=== PATIENT | female | born 1945 | race Caucasian/White ===

== ENCOUNTER 2018-06-01 04:14 | Inpatient (IN) | payer MEDICARE ==
[2018-06-01 04:14] VITALS: BMI 21.7
--- NOTE | 2018-06-01 04:46 | C.PDOC ---
History Of Present Illness 73-year-old female with a past medical history of diabetes and hypertension presents with complaints of left foot pain and swelling that began yesterday and worsened tonight. states she did not want to walk and spent more time in bed. Patient denies any fall or injury. On arrival, temp is 100.5F, but patient did not know of fever. Otherwise she denies any changes in sensation, weakness, cough, or URI symptoms. Pain worsens with weight bearing and movement. She did not take anything for pain. Time Seen by Provider: 06/01/18 04:36 Chief Complaint (Nursing): Lower Extremity Problem/Injury History Per: Patient History/Exam Limitations: no limitations Onset/Duration Of Symptoms: Days Current Symptoms Are (Timing): Still Present Additional History Per: Family Past Medical History Reviewed: Historical Data, Nursing Documentation, Vital Signs Vital Signs: Last Vital Signs Temp 100.5 F H 06/01/18 04:27 Pulse 96 H 06/01/18 04:27 Resp 18 06/01/18 04:27 BP 175/96 H 06/01/18 04:27 Pulse Ox 97 06/01/18 06:19 - Medical History PMH: Diabetes (type 2), HTN Family History: States: Unknown Family Hx - Social History Hx Tobacco Use: No Hx Alcohol Use: No Hx Substance Use: No - Immunization History Hx Tetanus Toxoid Vaccination: No Hx Influenza Vaccination: No Hx Pneumococcal Vaccination: Yes Review Of Systems ENT: Negative for: Nose Congestion Respiratory: Negative for: Cough, Shortness of Breath Gastrointestinal: Negative for: Nausea, Vomiting Musculoskeletal: Positive for: Foot Pain Neurological: Negative for: Weakness, Numbness Physical Exam - Physical Exam Appears: Non-toxic, No Acute Distress Skin: Warm, Dry, No Rash, No Mottled, No Ecchymosis Head: Atraumatic, Normacephalic Eye(s): bilateral: Normal Inspection Oral Mucosa: Moist Neck: Normal ROM Chest: Symmetrical Cardiovascular: Rhythm Regular, No Murmur Respiratory: Normal Breath Sounds, No Rales, No Rhonchi, No Wheezing Gastrointestinal/Abdominal: Soft, No Tenderness, No Distention Extremity: No Normal ROM (LLE: limited ROM secondary to pain), No Calf Tenderness, Capillary Refill (< 2 sec), No Deformity, Other (Left medial ankle and foot with swelling just below ankle; tactile warmth, erythema, no ulcers; psoriatic patches to leg) Pulses: Left Dorsalis Pedis: Normal, Right Dorsalis Pedis: Normal Neurological/Psych: Oriented x3, Normal Speech ED Course And Treatment - Laboratory Results Result Diagrams: 06/01/18 04:47 06/01/18 04:47 O2 Sat by Pulse Oximetry: 97 (RA) Pulse Ox Interpretation: Normal Medical Decision Making Medical Decision Making: Impression: 73-year-old with left foot pain Plan: --Urinalysis --CMP --CBC --Uric acid --Toradol 30 mg IVP --X-Ray Left Ankle --X-Ray Left Foot Progress: Labs reviewed shows elevated uric acid; abnormal CBC but not acute; Potassium slightly hemolyzed. Xrays show no fracture or dislocation, soft tissue swelling. Patient continued to complain of pain. 0523 Dr Wallace examined patient at bedside and recommend CT of lower extremity and to start IV Ancef. [address], pending report. Case signed out to RACHELLE Henriquez, pending CT report and will need podiatry consult. Disposition - Disposition Referrals: eKn Rodgers MD [Primary Care Provider] - Disposition Time: 06:43 Condition: STABLE - POA Present On Arrival: None - Clinical Impression Clinical Impression: Cellulitis, Foot pain - PA / [employer] / Resident Statement MD/DO has reviewed & agrees with the documentation as recorded. - Scribe Statement The provider has reviewed the documentation as recorded by the Scribe (Carlyn Sethi) All medical record entries made by the Scribe were at my direction and personally dictated by me. I have reviewed the chart and agree that the record accurately reflects my personal performance of the history, physical exam, medical decision making, and the department course for this patient. I have also personally directed, reviewed, and agree with the discharge instructions and disposition.
[2018-06-01 04:50] LABS: BASO # 0.1 K/uL (0.0-0.2); BASO % 0.5 % (0.0-2.0); HEMOGLOBIN 11.9 g/dL (11.0-16.0); LYMPH # 0.9 K/uL (1.0-4.3); LYMPH % 7.1 % (20.0-40.0); MEAN CELL VOLUME 94.5 fL (81.0-99.0); MEAN CORPUSCULAR HEMOGLOBIN 31.5 pg (27.0-31.0); MEAN CORPUSCULAR HGB CONC 33.3 g/dL (33.0-37.0); MEAN PLATELET VOLUME 7.5 fL (7.2-11.7); MONO # 1.5 K/uL (0.0-0.8); MONO % 12.1 % (0.0-10.0); NEUT # 10.1 K/uL (1.8-7.0); NEUT % 80.3 % (50.0-75.0); NRBC % 0.1 % (0.0-2.0); PLATELET COUNT 350 K/uL (130-400); RBC 3.77 Mil/uL (3.80-5.20); RED CELL DISTRIBUTION WIDTH 14.2 % (11.5-14.5); WHITE BLOOD COUNT 12.6 K/uL (4.8-10.8)
[2018-06-01 05:15] LABS: CALCIUM 9.3 mg/dl (8.6-10.4)
[2018-06-01 05:18] LABS: ALB/GLOB RATIO 0.9 (1.0-2.1); ALBUMIN 4.7 g/dL (3.5-5.0); URIC ACID 10.7 mg/dL (2.2-7.5)
[2018-06-01] MEDS ORDERED: ceFAZolin IV 1 gm in Dextrose 1 GM/50 ML BAG IVPB ONE (05:29)
[2018-06-01] MEDS ORDERED: ceFAZolin 1 gm in NS 1 GM/100 ML BAG IVPB ONE (05:36)
[2018-06-01 06:29] LABS: ANISOCYTOSIS SLIGHT; BANDS 2 % (0-2); LYMPHOCYTE 8 % (20-40); MONOCYTE 11 % (0-10); NEUTROPHIL 79 % (50-75); PLATELET ESTIMATE NORMAL (NORMAL); TOTAL CELLS COUNTED 100
--- NOTE | 2018-06-01 07:37 | CT ---
Date of service: 06/01/2018 PROCEDURE: CT of the left ankle without contrast HISTORY: pain, swelling, redness left ankle/foot; no injury COMPARISON: No prior similar study available for comparison TECHNIQUE: Axial and reformatted coronal and sagittal CT images of the left ankle were obtained without contrast administration. 3D reformatted images of the left ankle were also obtained. Total exam DLP: 437.55 FINDINGS: The assessment is suboptimal without IV contrast administration. No evidence of acute fracture or dislocation at the left ankle. There is a skin and subcutaneous edema and soft tissue swelling noted at the lateral aspect of the left ankle extending to the lateral and dorsal aspect of the left foot may represent cellulitis and subcutaneous inflammatory changes. There is no evidence of discrete drainable fluid collection in this non contrast enhancing study. IMPRESSION: No evidence of acute fracture or dislocation. Suboptimal assessment for possible infectious process or abscess without IV contrast administration. Skin and subcutaneous swelling at the lateral aspect of the left ankle extending to the dorsal aspect of the left foot may represent cellulitis. No discrete abscess formation or drainable fluid collection noted this study. Preliminary report was submitted by [facility].
[2018-06-01 08:34] LABS: CALCIUM 9.5 mg/dl (8.6-10.4)
--- NOTE | 2018-06-01 08:51 | RAD ---
Date of service: 06/01/2018 PROCEDURE: Left Ankle Radiographs. HISTORY: pain to ankle no injury COMPARISON: None FINDINGS: BONES: No fracture. Plantar calcaneal spur. JOINTS: Normal. No osteoarthritis. Ankle mortise maintained. Talar dome intact SOFT TISSUES: Normal. OTHER FINDINGS: None. IMPRESSION: No acute fracture.
--- NOTE | 2018-06-01 08:52 | RAD ---
Date of service: 06/01/2018 PROCEDURE: Left Foot Radiographs. HISTORY: pain to foot COMPARISON: None. FINDINGS: BONES: No fracture. Plantar calcaneal spur. JOINTS: Mild hallux valgus deformity. Remaining joint spaces and articular surfaces are intact. SOFT TISSUES: Normal. OTHER FINDINGS: None. IMPRESSION: No acute fracture.
--- NOTE | 2018-06-01 08:58 | CP.PCM.CON ---
History of Present Illness - History of Present Illness History of Present Illness: Podiatry Consult Note - Dr. Salamanca 73 year old female PMHx DM, HTN seen and examined in ED concerning left foot pain and swelling that started yesterday; patient states swelling worsened overnight preventing her from walking properly so presented to ED for further evaluation. Patient denies any prior trauma, change in shoe gear, or change in activity. Patient denies any f/c, however temperature 100.5F on arrival. Patient denies prior treatment. Patient denies N/V/D/SOB/PARKS/CP. Offers no other complaints at this time. PMHx: DM, HTN PSH: none FH: unknown SH: denies ETOH/tobacco/illicit drug use All: NKDA Review of Systems - Review of Systems All systems: reviewed and no additional remarkable complaints except (as per HPI ) Past Patient History - Infectious Disease Hx of Infectious Diseases: None - Past Medical History & Family History Past Medical History?: Yes - Past Social History Smoking Status: Never Smoked - CARDIAC Hx Hypertension: Yes - PULMONARY Hx Respiratory Disorders: No - NEUROLOGICAL Hx Neurological Disorder: No - HEENT Hx HEENT Problems: No - RENAL Hx Chronic Kidney Disease: No Hx Kidney Stones: No - ENDOCRINE/METABOLIC Hx Endocrine Disorders: Yes Hx Diabetes Mellitus Type 2: Yes - HEMATOLOGICAL/ONCOLOGICAL Hx Blood Disorders: No - INTEGUMENTARY Hx Dermatological Problems: No - MUSCULOSKELETAL/RHEUMATOLOGICAL Hx Musculoskeletal Disorders: No Hx Falls: No - GASTROINTESTINAL Hx Gastrointestinal Disorders: No - GENITOURINARY/GYNECOLOGICAL Hx Genitourinary Disorders: No - PSYCHIATRIC Hx Substance Use: No - SURGICAL HISTORY Hx Surgeries: Yes Hx Hysterectomy: Yes (70's) - ANESTHESIA Hx Anesthesia: Yes Hx Anesthesia Reactions: No Hx Malignant Hyperthermia: No Meds Allergies/Adverse Reactions: Allergies Allergy/AdvReac Type Severity Reaction Status Date / Time No Known Allergies Allergy Verified 06/01/18 04:22 - Medications Medications: Current Medications Sodium Chloride (Sodium Chloride 0.9%) 1,000 mls @ 100 mls/hr IV .Q10H KRISTA Physical Exam - Constitutional Appears: Well, Non-toxic, No Acute Distress - Extremities Exam Additional comments: LLE focused physical exam: VASC: DP and PT pulses nonpalpable 2/2 edema. Temperature gradient warm to warm , no significant increase in warmth noted to areas of erythema. Non-pitting edema extending from digits to ankle joint. NEURO: Gross sensation diminished. DERM: Erythema extending from digits to ankle joint. No open lesions noted. Webspaces 1-4 clean/dry/intact, no maceration noted. Raised, purple plaques measuring approximately 0.4 x 0.4 cm with overlying silver scales noted to anterior and lateral aspects of leg. ORTHO: Mild tenderness to palpation noted to areas of erythema. Muscle strength 5/5 for all dorsiflexors, plantarflexors, inverters, and everters. - Neurological Exam Neurological exam: Alert, Oriented x3 - Psychiatric Exam Psychiatric exam: Normal Affect, Normal Mood Results - Vital Signs Recent Vital Signs: Last Vital Signs Temp 98.0 F 06/01/18 07:58 Pulse 79 06/01/18 07:58 Resp 16 06/01/18 07:58 BP 168/94 H 06/01/18 07:58 Pulse Ox 97 06/01/18 07:58 - Labs Result Diagrams: 06/01/18 04:47 06/01/18 07:57 Labs: Laboratory Results - last 24 hr 06/01/18 06/01/18 06/01/18 04:47 04:47 07:57 WBC 12.6 H RBC 3.77 L Hgb 11.9 Hct 35.7 MCV 94.5 MCH 31.5 H MCHC 33.3 RDW 14.2 Plt Count 350 MPV 7.5 Neut % (Auto) 80.3 H Lymph % (Auto) 7.1 L [place] % (Auto) 12.1 H Eos % (Auto) 0.0 Baso % (Auto) 0.5 Neut # (Auto) 10.1 H Lymph # (Auto) 0.9 L [place] # (Auto) 1.5 H Eos # (Auto) 0.0 Baso # (Auto) 0.1 Neutrophils % (Manual) 79 H Band Neutrophils % 2 Lymphocytes % (Manual) 8 L Monocytes % (Manual) 11 H Platelet Estimate Normal Anisocytosis (manual) Slight Sodium 144 144 Potassium 6.0 H 3.5 L Chloride 101 100 Carbon Dioxide 25 26 Anion Gap 24 H 22 H BUN 33 H 35 H Creatinine 1.6 H 1.7 H Est GFR ( Amer) 38 36 Est GFR (Non-Af Amer) 32 30 Random Glucose 234 H 186 H Uric Acid 10.7 H Calcium 9.3 9.5 Total Bilirubin 2.2 H AST 68 H ALT 25 Alkaline Phosphatase 101 Total Protein 9.7 H Albumin 4.7 Globulin 5.0 H Albumin/Globulin Ratio 0.9 L Assessment & Plan - Assessment and Plan (Free Text) Assessment: 73F with left foot cellulitis Plan: Patient seen and evaluated Discussed with attending, Dr. Salamanca Tmax 100.5, WBC 12.6, ESR 120 Ancef 1g IV given in ED Patient to be admitted for IV abx ID consulted - Dr. Fine Pain control per primary team Podiatry will continue to follow
[2018-06-01] MEDS ORDERED: Sodium Chloride 0.9% 500 ML IV ONE (09:30)
[2018-06-01] MEDS: Sodium Chloride 0.9% 1,000 ML IV SCH (09:38)
[2018-06-01 10:50] LABS: URINE BILIRUBIN NEGATIVE (NEGATIVE); URINE BLOOD 2+ (NEGATIVE); URINE CLARITY Hazy (Clear); URINE COLOR Amber (YELLOW); URINE GLUCOSE (UA) 1+ mg/dL (Normal); URINE LEUKOCYTE ESTERASE NEG Leu/uL (Negative); URINE PROTEIN 2+ mg/dL (NEGATIVE); URINE UROBILINOGEN NORMAL mg/dL (0.2-1.0)
[2018-06-01 11:04] LABS: SQUAMOUS EPITHIAL 2 /hpf (0-5)
[2018-06-01 11:05] LABS: GRANULAR CAST 2 /lpf (0-1); URINE AMORPHOUS SEDIMENT MODERATE /ul (<OCC); URINE BACTERIA RARE (<OCC)
[2018-06-01] MEDS ORDERED: Glucagon Recombinant 1 mg Inj IM PRN (12:01)
[2018-06-01] MEDS ORDERED: Dextrose 50% SYRINGE Inj (50 ml) IV PRN (12:01)
--- NOTE | 2018-06-01 12:32 | CP.PCM.CON ---
Past Patient History - Infectious Disease Hx of Infectious Diseases: None - Past Medical History & Family History Past Medical History?: Yes - Past Social History Smoking Status: Never Smoked - CARDIAC Hx Hypertension: Yes - PULMONARY Hx Respiratory Disorders: No - NEUROLOGICAL Hx Neurological Disorder: No - HEENT Hx HEENT Problems: No - RENAL Hx Chronic Kidney Disease: No Hx Kidney Stones: No - ENDOCRINE/METABOLIC Hx Endocrine Disorders: Yes Hx Diabetes Mellitus Type 2: Yes - HEMATOLOGICAL/ONCOLOGICAL Hx Blood Disorders: No - INTEGUMENTARY Hx Dermatological Problems: No - MUSCULOSKELETAL/RHEUMATOLOGICAL Hx Musculoskeletal Disorders: No Hx Falls: No - GASTROINTESTINAL Hx Gastrointestinal Disorders: No - GENITOURINARY/GYNECOLOGICAL Hx Genitourinary Disorders: No - PSYCHIATRIC Hx Substance Use: No - SURGICAL HISTORY Hx Surgeries: Yes Hx Hysterectomy: Yes ('s) - ANESTHESIA Hx Anesthesia: Yes Hx Anesthesia Reactions: No Hx Malignant Hyperthermia: No Meds Allergies/Adverse Reactions: Allergies Allergy/AdvReac Type Severity Reaction Status Date / Time No Known Allergies Allergy Verified 06/01/18 04:22 - Medications Medications: Current Medications Dextrose (Dextrose 50% Inj) 0 ml IV STAT PRN; Protocol PRN Reason: Hypoglycemia Protocol Dextrose (Glutose 15) 0 gm PO ONCE PRN; Protocol PRN Reason: Hypoglycemia Protocol Glucagon (Glucagen Diagnostic Kit) 0 mg IM STAT PRN; Protocol PRN Reason: Hypoglycemia Protocol Heparin Sodium (Porcine) (Heparin) 5,000 units SC Q8 KRISTA Sodium Chloride (Sodium Chloride 0.9%) 1,000 mls @ 100 mls/hr IV .Q10H [facility] Last Admin: 06/01/18 09:38 Dose: 100 mls/hr Dextrose (Dextrose 5% In Water 1000 Ml) 1,000 mls @ 0 mls/hr IV .Q0M PRN; Protocol; Per Protocol PRN Reason: Hypoglycemia Protocol Insulin Detemir (Levemir) 8 unit SC DAILY [facility] Lisinopril (Zestril) 20 mg PO DAILY [facility] Results - Vital Signs Recent Vital Signs: Last Vital Signs Temp 98.0 F 06/01/18 07:58 Pulse 75 06/01/18 10:20 Resp 20 06/01/18 10:20 BP 152/85 H 06/01/18 10:20 Pulse Ox 97 06/01/18 10:20 - Labs Result Diagrams: 06/01/18 04:47 06/01/18 07:57 Labs: Laboratory Results - last 24 hr 06/01/18 06/01/18 06/01/18 04:31 04:47 04:47 WBC 12.6 H RBC 3.77 L Hgb 11.9 Hct 35.7 MCV 94.5 MCH 31.5 H MCHC 33.3 RDW 14.2 Plt Count 350 MPV 7.5 Neut % (Auto) 80.3 H Lymph % (Auto) 7.1 L [place] % (Auto) 12.1 H Eos % (Auto) 0.0 Baso % (Auto) 0.5 Neut # (Auto) 10.1 H Lymph # (Auto) 0.9 L [place] # (Auto) 1.5 H Eos # (Auto) 0.0 Baso # (Auto) 0.1 Neutrophils % (Manual) 79 H Band Neutrophils % 2 Lymphocytes % (Manual) 8 L Monocytes % (Manual) 11 H Platelet Estimate Normal Anisocytosis (manual) Slight ESR Sodium 144 Potassium 6.0 H Chloride 101 Carbon Dioxide 25 Anion Gap 24 H BUN 33 H Creatinine 1.6 H Est GFR ( Amer) 38 Est GFR (Non-Af Amer) 32 POC Glucose (mg/dL) 241 H Random Glucose 234 H Uric Acid 10.7 H Calcium 9.3 Total Bilirubin 2.2 H AST 68 H ALT 25 Alkaline Phosphatase 101 Total Protein 9.7 H Albumin 4.7 Globulin 5.0 H Albumin/Globulin Ratio 0.9 L Urine Color Urine Clarity Urine pH Ur Specific [place] Urine Protein Urine Glucose (UA) Urine Ketones Urine Blood Urine Nitrate Urine Bilirubin Urine Urobilinogen Ur Leukocyte Esterase Urine WBC (Auto) Urine RBC (Auto) Ur Squamous Epith Cells Amorphous Sediment Urine Bacteria Hyaline Casts Granular Casts (Auto) 06/01/18 06/01/18 06/01/18 07:57 07:57 10:16 WBC RBC Hgb Hct MCV MCH MCHC RDW Plt Count MPV Neut % (Auto) Lymph % (Auto) [place] % (Auto) Eos % (Auto) Baso % (Auto) Neut # (Auto) Lymph # (Auto) [place] # (Auto) Eos # (Auto) Baso # (Auto) Neutrophils % (Manual) Band Neutrophils % Lymphocytes % (Manual) Monocytes % (Manual) Platelet Estimate Anisocytosis (manual) ESR 120 H Sodium 144 Potassium 3.5 L Chloride 100 Carbon Dioxide 26 Anion Gap 22 H BUN 35 H Creatinine 1.7 H Est GFR ( Amer) 36 Est GFR (Non-Af Amer) 30 POC Glucose (mg/dL) Random Glucose 186 H Uric Acid Calcium 9.5 Total Bilirubin AST ALT Alkaline Phosphatase Total Protein Albumin Globulin Albumin/Globulin Ratio Urine Color [place] Urine Clarity Hazy Urine pH 5.0 Ur Specific [place] 1.021 Urine Protein 2+ H Urine Glucose (UA) 1+ Urine Ketones Negative Urine Blood 2+ H Urine Nitrate Negative Urine Bilirubin Negative Urine Urobilinogen Normal Ur Leukocyte Esterase Neg Urine WBC (Auto) 2 Urine RBC (Auto) 10 H Ur Squamous Epith Cells 2 Amorphous Sediment Moderate H Urine Bacteria Rare Hyaline Casts 3-5 H Granular Casts (Auto) 2
[2018-06-01] MEDS: ceFAZolin IV 1 gm in Dextrose 1 GM/50 ML BAG IVPB SCH ×2 (14:22→20:50)
[2018-06-02] MEDS: ceFAZolin IV 1 gm in Dextrose 1 GM/50 ML BAG IVPB SCH ×3 (03:58→21:10)
[2018-06-02] MEDS: Sodium Chloride 0.9% 1,000 ML IV SCH ×3 (03:58→13:48)
[2018-06-02 08:01] LABS: BASO % 0.3 % (0.0-2.0); EOS # 0.1 K/uL (0.0-0.7); EOS % 1.6 % (0.0-4.0); HEMOGLOBIN 10.4 g/dL (11.0-16.0); LYMPH # 1.1 K/uL (1.0-4.3); LYMPH % 15.6 % (20.0-40.0); MEAN CELL VOLUME 95.2 fL (81.0-99.0); MEAN CORPUSCULAR HEMOGLOBIN 32.7 pg (27.0-31.0); MEAN CORPUSCULAR HGB CONC 34.3 g/dL (33.0-37.0); MEAN PLATELET VOLUME 8.1 fL (7.2-11.7); MONO # 0.5 K/uL (0.0-0.8); MONO % 7.6 % (0.0-10.0); NEUT # 5.1 K/uL (1.8-7.0); NEUT % 74.9 % (50.0-75.0); RBC 3.18 Mil/uL (3.80-5.20); RED CELL DISTRIBUTION WIDTH 14.2 % (11.5-14.5); WHITE BLOOD COUNT 6.8 K/uL (4.8-10.8)
[2018-06-02 08:26] LABS: ALB/GLOB RATIO 1.1 (1.0-2.1); ALBUMIN 3.5 g/dL (3.5-5.0); CALCIUM 8.4 mg/dl (8.6-10.4)
--- NOTE | 2018-06-02 08:42 | CP.PCM.HP ---
History of Present Illness - History of Present Illness History of Present Illness: CC: Foot pain 73 y/o female with brain cyst, HTN, NIDDM. Patient has left foot pain x 3 days. Cay[place] increase in pain and redness yesterday. She was seen in ER and advise admission, Present on Admission - Present on Admission Any Indicators Present on Admission: Yes History of DVT/PE: No History of Uncontrolled Diabetes: Yes Urinary Catheter: No Decubitus Ulcer Present: No Review of Systems - Review of Systems Systems not reviewed;Unavailable: Acuity of Condition - Constitutional Constitutional: Fatigue. absent: Fever, Headache, Increased Appetite, Night Sweats - EENT Eyes: absent: Change in Vision, Diplopia, Loss of Peripheral Vision, Sees Flashes Nose/Mouth/Throat: absent: Epistaxis, Nose Pain, Bleeding Gums, Dysphagia - Breasts Breasts: absent: Mass, Nipple Discharge - Cardiovascular Cardiovascular: Edema. absent: Chest Pain, Chest Pain at Rest, Diaphoresis, Dyspnea, Leg Edema, Palpitations, Pedal Edema - Respiratory Respiratory: Cough. absent: Hemoptysis, Dyspnea on Exertion, Chest Congestion - Gastrointestinal Gastrointestinal: Abdominal Pain. absent: Coffee Ground Emesis, Dyspepsia, Heartburn, Nausea - Genitourinary Genitourinary: absent: Dysuria, Pyuria, Nocturia - Musculoskeletal Musculoskeletal: Muscle Weakness. absent: Atrophy, Back Pain, Loss of Height, Myalgias, Neck Pain - Integumentary Integumentary: absent: Bleeding Lesions, Change in Hair, Dry Skin, Furuncle, Hirsutism, Rash - Neurological Neurological: absent: Abnormal Hearing, Burning Sensations, Disequilibrium, Dizziness, Numbness, Headaches - Hematologic/Lymphatic Hematologic: absent: Easy Bleeding, Lymphadenopathy Past Patient History - Infectious Disease Hx of Infectious Diseases: None - Past Medical History & Family History Past Medical History?: Yes - Past Social History Smoking Status: Never Smoked - CARDIAC Hx Hypertension: Yes - PULMONARY Hx Respiratory Disorders: No - NEUROLOGICAL Hx Neurological Disorder: No - HEENT Hx HEENT Problems: No - RENAL Hx Chronic Kidney Disease: No Hx Kidney Stones: No - ENDOCRINE/METABOLIC Hx Endocrine Disorders: Yes Hx Diabetes Mellitus Type 2: Yes - HEMATOLOGICAL/ONCOLOGICAL Hx Blood Disorders: No - INTEGUMENTARY Hx Dermatological Problems: No - MUSCULOSKELETAL/RHEUMATOLOGICAL Hx Musculoskeletal Disorders: No Hx Falls: No - GASTROINTESTINAL Hx Gastrointestinal Disorders: No - GENITOURINARY/GYNECOLOGICAL Hx Genitourinary Disorders: No - PSYCHIATRIC Hx Substance Use: No - SURGICAL HISTORY Hx Surgeries: Yes Hx Hysterectomy: Yes (70's) - ANESTHESIA Hx Anesthesia: Yes Hx Anesthesia Reactions: No Hx Malignant Hyperthermia: No Meds Allergies/Adverse Reactions: Allergies Allergy/AdvReac Type Severity Reaction Status Date / Time No Known Allergies Allergy Verified 06/01/18 04:22 Physical Exam - Constitutional Appears: Unkempt - Eye Exam Eye Exam: Normal appearance - ENT Exam ENT Exam: Mucous Membranes Moist - Neck Exam Neck exam: Positive for: Full Rom. Negative for: Lymphadenopathy - Respiratory Exam Respiratory Exam: Clear to Auscultation Bilateral. absent: Rales, Wheezes - Cardiovascular Exam Cardiovascular Exam: +S1, +S2. absent: Gallop, REGULAR RHYTHM - GI/Abdominal Exam GI & Abdominal Exam: Soft. absent: Guarding, Rebound, Tenderness - Extremities Exam Extremities exam: Positive for: full ROM, joint swelling, pedal pulses present ( Left foot is 2/3 swoolen, slight warm, no fluctuation noted). Negative for: calf tenderness Results - Vital Signs Recent Vital Signs: Last Vital Signs Temp 98.3 F 06/02/18 07:45 Pulse 77 06/02/18 07:45 Resp 18 06/02/18 07:45 BP 178/86 H 06/02/18 07:45 Pulse Ox 98 06/02/18 07:45 - Labs Result Diagrams: 06/02/18 07:47 06/02/18 07:47 Labs: Laboratory Results - last 24 hr 06/01/18 06/01/18 06/01/18 04:31 07:57 10:16 WBC RBC Hgb Hct MCV MCH MCHC RDW Plt Count MPV Neut % (Auto) Lymph % (Auto) [place] % (Auto) Eos % (Auto) Baso % (Auto) Neut # (Auto) Lymph # (Auto) [place] # (Auto) Eos # (Auto) Baso # (Auto) ESR 120 H Sodium Potassium Chloride Carbon Dioxide Anion Gap BUN Creatinine Est GFR ( Amer) Est GFR (Non-Af Amer) POC Glucose (mg/dL) 241 H Random Glucose Lactic Acid Calcium Total Bilirubin AST ALT Alkaline Phosphatase Total Protein Albumin Globulin Albumin/Globulin Ratio Procalcitonin Urine Color [place] Urine Clarity Hazy Urine pH 5.0 Ur Specific [place] 1.021 Urine Protein 2+ H Urine Glucose (UA) 1+ Urine Ketones Negative Urine Blood 2+ H Urine Nitrate Negative Urine Bilirubin Negative Urine Urobilinogen Normal Ur Leukocyte Esterase Neg Urine WBC (Auto) 2 Urine RBC (Auto) 10 H Ur Squamous Epith Cells 2 Amorphous Sediment Moderate H Urine Bacteria Rare Hyaline Casts 3-5 H Granular Casts (Auto) 2 06/01/18 06/01/18 06/01/18 13:50 14:40 16:21 WBC RBC Hgb Hct MCV MCH MCHC RDW Plt Count MPV Neut % (Auto) Lymph % (Auto) [place] % (Auto) Eos % (Auto) Baso % (Auto) Neut # (Auto) Lymph # (Auto) [place] # (Auto) Eos # (Auto) Baso # (Auto) ESR Sodium Potassium Chloride Carbon Dioxide Anion Gap BUN Creatinine Est GFR ( Amer) Est GFR (Non-Af Amer) POC Glucose (mg/dL) 185 H Random Glucose Lactic Acid 1.0 Calcium Total Bilirubin AST ALT Alkaline Phosphatase Total Protein Albumin Globulin Albumin/Globulin Ratio Procalcitonin 0.81 H Urine Color Urine Clarity Urine pH Ur Specific [place] Urine Protein Urine Glucose (UA) Urine Ketones Urine Blood Urine Nitrate Urine Bilirubin Urine Urobilinogen Ur Leukocyte Esterase Urine WBC (Auto) Urine RBC (Auto) Ur Squamous Epith Cells Amorphous Sediment Urine Bacteria Hyaline Casts Granular Casts (Auto) 06/01/18 06/02/18 06/02/18 21:25 06:21 07:47 WBC 6.8 RBC 3.18 L Hgb 10.4 L Hct 30.3 L MCV 95.2 MCH 32.7 H MCHC 34.3 RDW 14.2 Plt Count 300 MPV 8.1 Neut % (Auto) 74.9 Lymph % (Auto) 15.6 L [place] % (Auto) 7.6 Eos % (Auto) 1.6 Baso % (Auto) 0.3 Neut # (Auto) 5.1 Lymph # (Auto) 1.1 [place] # (Auto) 0.5 Eos # (Auto) 0.1 Baso # (Auto) 0.0 ESR Sodium Potassium Chloride Carbon Dioxide Anion Gap BUN Creatinine Est GFR ( Amer) Est GFR (Non-Af Amer) POC Glucose (mg/dL) 172 H 140 H Random Glucose Lactic Acid Calcium Total Bilirubin AST ALT Alkaline Phosphatase Total Protein Albumin Globulin Albumin/Globulin Ratio Procalcitonin Urine Color Urine Clarity Urine pH Ur Specific [place] Urine Protein Urine Glucose (UA) Urine Ketones Urine Blood Urine Nitrate Urine Bilirubin Urine Urobilinogen Ur Leukocyte Esterase Urine WBC (Auto) Urine RBC (Auto) Ur Squamous Epith Cells Amorphous Sediment Urine Bacteria Hyaline Casts Granular Casts (Auto) 06/02/18 07:47 WBC RBC Hgb Hct MCV MCH MCHC RDW Plt Count MPV Neut % (Auto) Lymph % (Auto) [place] % (Auto) Eos % (Auto) Baso % (Auto) Neut # (Auto) Lymph # (Auto) [place] # (Auto) Eos # (Auto) Baso # (Auto) ESR Sodium 143 Potassium 3.3 L Chloride 107 Carbon Dioxide 22 Anion Gap 17 BUN 26 H Creatinine 1.1 Est GFR ( Amer) 59 Est GFR (Non-Af Amer) 49 POC Glucose (mg/dL) Random Glucose 149 H Lactic Acid Calcium 8.4 L Total Bilirubin 0.4 AST 48 H D ALT 36 Alkaline Phosphatase 113 Total Protein 6.7 Albumin 3.5 D Globulin 3.2 Albumin/Globulin Ratio 1.1 Procalcitonin Urine Color Urine Clarity Urine pH Ur Specific [place] Urine Protein Urine Glucose (UA) Urine Ketones Urine Blood Urine Nitrate Urine Bilirubin Urine Urobilinogen Ur Leukocyte Esterase Urine WBC (Auto) Urine RBC (Auto) Ur Squamous Epith Cells Amorphous Sediment Urine Bacteria Hyaline Casts Granular Casts (Auto) - EKG Data EKG Interpreted by: Other (Not done in ER) Assessment & Plan - Assessment and Plan (Free Text) Assessment: Left foot Cellulitis On IV antibiotic; no work done in ER ID appreciate Unc NIDDM; HTN Discuss compliance again Will inc BP meds Advise no more Metformin c/o inc Cr On levemir + sliding scale Brain mass ? cyst Refuse any treatment not another MRI c/o no Sx "just let me enjoy my nursing home"
[2018-06-02] MEDS: Insulin Detemir 100 units/ml Vial (Levemir) SC SCH (09:38)
--- NOTE | 2018-06-02 10:10 | CP.PCM.PN ---
Subjective - Date & Time of Evaluation Date of Evaluation: 06/02/18 Time of Evaluation: 10:10 - Subjective Subjective: Podiatry Progress Note - Dr. Salamanca 73F PMHx DM, HTN seen and evaluated at bedside for left foot cellulitis. Patient sleeping at time of visit, hemodynamically stable and NAD. No acute events overnight. Patient denies any pain to left foot; states redness and swelling is resolving. Denies N/V/F/D/C/SOB/PARKS/CP. No new complaints. Objective - Vital Signs/Intake and Output Vital Signs (last 24 hours): Temp Pulse Resp BP Pulse Ox 98.3 F 79 18 155/77 H 98 06/02/18 07:45 06/02/18 09:37 06/02/18 07:45 06/02/18 09:38 06/02/18 07:45 Intake and Output: 06/02/18 06/02/18 06:59 18:59 Intake Total 1670 Balance 1670 - Medications Medications: Current Medications Carvedilol (Coreg) 12.5 mg PO BID [facility] Last Admin: 06/02/18 09:38 Dose: 12.5 mg Clopidogrel Bisulfate (Plavix) 75 mg PO DAILY [facility] Last Admin: 06/02/18 09:38 Dose: 75 mg Dextrose (Dextrose 50% Inj) 0 ml IV STAT PRN; Protocol PRN Reason: Hypoglycemia Protocol Dextrose (Glutose 15) 0 gm PO ONCE PRN; Protocol PRN Reason: Hypoglycemia Protocol Glucagon (Glucagen Diagnostic Kit) 0 mg IM STAT PRN; Protocol PRN Reason: Hypoglycemia Protocol Heparin Sodium (Porcine) (Heparin) 5,000 units SC Q8 [facility] Last Admin: 06/02/18 06:03 Dose: 5,000 units Hydrochlorothiazide (Microzide) 12.5 mg PO DAILY [facility] Last Admin: 06/02/18 09:39 Dose: 12.5 mg Sodium Chloride (Sodium Chloride 0.9%) 1,000 mls @ 100 mls/hr IV .Q10H [facility] Last Admin: 06/02/18 04:02 Dose: Not Given Dextrose (Dextrose 5% In Water 1000 Ml) 1,000 mls @ 0 mls/hr IV .Q0M PRN; Protocol; Per Protocol PRN Reason: Hypoglycemia Protocol Vancomycin/Sodium Chloride (Vancomycin 1 Gm/Ns 200 Ml) 1 gm in 200 mls @ 133.333 mls/hr IVPB Q24H [facility] PRN Reason: Protocol Cefazolin Sodium/Dextrose (Ancef Iv 1 Gm Duplex) 1 gm in 50 mls @ 100 mls/hr IVPB Q8H [facility] PRN Reason: Protocol Last Admin: 06/02/18 03:58 Dose: 100 mls/hr Insulin Detemir (Levemir) 8 unit SC DAILY [facility] Last Admin: 06/02/18 09:38 Dose: 8 units Lisinopril (Zestril) 10 mg PO BID [facility] Last Admin: 06/02/18 09:38 Dose: 10 mg - Labs Labs: 06/02/18 07:47 06/02/18 07:47 - Constitutional Appears: Well, Non-toxic, No Acute Distress - Extremities Exam Additional comments: LLE focused physical exam: VASC: DP and PT pulses nonpalpable 2/2 edema. Temperature gradient warm to warm , no significant increase in warmth noted to areas of erythema. Non-pitting edema extending from digits to ankle joint, decreased. NEURO: Gross sensation diminished. DERM: Erythema extending from digits to ankle joint has resolved. No open lesions noted. Webspaces 1-4 clean/dry/intact, no maceration noted. Raised, purple plaques measuring approximately 0.4 x 0.4 cm with overlying silver scales noted to anterior and lateral aspects of leg. ORTHO: No tenderness to palpation noted to areas of erythema. Muscle strength 5/ 5 for all dorsiflexors, plantarflexors, inverters, and everters. - Neurological Exam Neurological Exam: Alert, Awake, Oriented x3 - Psychiatric Exam Psychiatric exam: Normal Affect, Normal Mood Assessment and Plan - Assessment and Plan (Free Text) Assessment: 73F with left foot cellulitis, resolving Plan: Patient seen and evaluated Discussed with attending, Dr. Salamanca Afebrile, WBC 6.8, ESR 120 Cellulitis resolving - will continue to monitor Continue abx per ID - Ancef, Vancomycin Pain control per primary team Podiatry will continue to follow
--- NOTE | 2018-06-02 12:47 | CP.PCM.PN ---
Subjective - Date & Time of Evaluation Date of Evaluation: 06/02/18 Time of Evaluation: 07:00 - Subjective Subjective: iv rx in progress cellulitis less Objective - Vital Signs/Intake and Output Vital Signs (last 24 hours): Temp Pulse Resp BP Pulse Ox 98.3 F 79 18 155/77 H 98 06/02/18 07:45 06/02/18 09:37 06/02/18 07:45 06/02/18 09:38 06/02/18 07:45 Intake and Output: 06/02/18 06/02/18 06:59 18:59 Intake Total 1670 Balance 1670 - Medications Medications: Current Medications Carvedilol (Coreg) 12.5 mg PO BID [facility] Last Admin: 06/02/18 09:38 Dose: 12.5 mg Clopidogrel Bisulfate (Plavix) 75 mg PO DAILY [facility] Last Admin: 06/02/18 09:38 Dose: 75 mg Dextrose (Dextrose 50% Inj) 0 ml IV STAT PRN; Protocol PRN Reason: Hypoglycemia Protocol Dextrose (Glutose 15) 0 gm PO ONCE PRN; Protocol PRN Reason: Hypoglycemia Protocol Glucagon (Glucagen Diagnostic Kit) 0 mg IM STAT PRN; Protocol PRN Reason: Hypoglycemia Protocol Heparin Sodium (Porcine) (Heparin) 5,000 units SC Q8 [facility] Last Admin: 06/02/18 06:03 Dose: 5,000 units Hydrochlorothiazide (Microzide) 12.5 mg PO DAILY [facility] Last Admin: 06/02/18 09:39 Dose: 12.5 mg Sodium Chloride (Sodium Chloride 0.9%) 1,000 mls @ 100 mls/hr IV .Q10H [facility] Last Admin: 06/02/18 04:02 Dose: Not Given Dextrose (Dextrose 5% In Water 1000 Ml) 1,000 mls @ 0 mls/hr IV .Q0M PRN; Protocol; Per Protocol PRN Reason: Hypoglycemia Protocol Vancomycin/Sodium Chloride (Vancomycin 1 Gm/Ns 200 Ml) 1 gm in 200 mls @ 133.333 mls/hr IVPB Q24H [facility] PRN Reason: Protocol Cefazolin Sodium/Dextrose (Ancef Iv 1 Gm Duplex) 1 gm in 50 mls @ 100 mls/hr IVPB Q8H [facility] PRN Reason: Protocol Last Admin: 06/02/18 03:58 Dose: 100 mls/hr Insulin Detemir (Levemir) 8 unit SC DAILY [facility] Last Admin: 06/02/18 09:38 Dose: 8 units Lisinopril (Zestril) 10 mg PO BID [facility] Last Admin: 06/02/18 09:38 Dose: 10 mg - Labs Labs: 06/02/18 07:47 06/02/18 07:47 - Constitutional Appears: Non-toxic, Chronically Ill - Head Exam Head Exam: NORMOCEPHALIC - Eye Exam Eye Exam: PERRL - ENT Exam ENT Exam: Mucous Membranes Dry - Neck Exam Neck Exam: absent: Lymphadenopathy - Respiratory Exam Respiratory Exam: Decreased Breath Sounds - Cardiovascular Exam Cardiovascular Exam: REGULAR RHYTHM - GI/Abdominal Exam GI & Abdominal Exam: Distended - Rectal Exam Rectal Exam: Deferred - Exam Exam: NORMAL INSPECTION - Extremities Exam Extremities Exam: Pedal Edema, Tenderness - Back Exam Back Exam: absent: CVA tenderness (L), CVA tenderness (R) Assessment and Plan - Assessment and Plan (Free Text) Plan: cont iv rx for cellultitis
[2018-06-02] MEDS: Vancomycin 1 gm/NS 200 ml 1 GM/200 ML BAG IVPB SCH (13:43)
[2018-06-02] MEDS: Potassium Chloride 20 mEq ER Tab PO SCH (14:37)
[2018-06-02 17:15] LABS: N MENINGITIS ACY/W135 NEGATIVE (NEGATIVE); N MENINGITIS B/ECOLI K1 NEGATIVE (NEGATIVE); STREP PNEUMONIAE NEGATIVE (NEGATIVE); STREPTOCOCCUS B NEGATIVE (NEGATIVE)
[2018-06-03] MEDS: Sodium Chloride 0.9% 1,000 ML IV SCH ×3 (01:45→20:45)
[2018-06-03] MEDS: ceFAZolin IV 1 gm in Dextrose 1 GM/50 ML BAG IVPB SCH ×3 (05:45→20:42)
[2018-06-03 07:29] LABS: BASO % 0.4 % (0.0-2.0); EOS # 0.2 K/uL (0.0-0.7); EOS % 3.4 % (0.0-4.0); HEMOGLOBIN 10.3 g/dL (11.0-16.0); LYMPH % 17.5 % (20.0-40.0); MEAN CELL VOLUME 95.5 fL (81.0-99.0); MEAN CORPUSCULAR HEMOGLOBIN 32.5 pg (27.0-31.0); MEAN PLATELET VOLUME 7.6 fL (7.2-11.7); MONO # 0.6 K/uL (0.0-0.8); MONO % 10.8 % (0.0-10.0); NEUT # 3.9 K/uL (1.8-7.0); NEUT % 67.9 % (50.0-75.0); RBC 3.18 Mil/uL (3.80-5.20); RED CELL DISTRIBUTION WIDTH 14.2 % (11.5-14.5); WHITE BLOOD COUNT 5.8 K/uL (4.8-10.8)
--- NOTE | 2018-06-03 07:50 | CP.PCM.PN ---
Subjective - Date & Time of Evaluation Date of Evaluation: 06/03/18 Time of Evaluation: 07:50 - Subjective Subjective: Podiatry Progress Note - Dr. Salamanca 73F PMHx DM, HTN seen and evaluated at bedside for left foot cellulitis. Patient resting comfortably, hemodynamically stable and NAD. No acute events overnight. Patient denies any pain to left foot, swelling continues to improve. No new complaints. Denies N/V/F/D/C/SOB. Objective - Vital Signs/Intake and Output Vital Signs (last 24 hours): Temp Pulse Resp BP Pulse Ox 98.4 F 72 18 186/79 H 98 06/03/18 07:41 06/03/18 07:41 06/03/18 07:41 06/03/18 07:41 06/03/18 07:41 - Medications Medications: Current Medications Carvedilol (Coreg) 12.5 mg PO BID [facility] Last Admin: 06/02/18 17:07 Dose: 12.5 mg Clopidogrel Bisulfate (Plavix) 75 mg PO DAILY [facility] Last Admin: 06/02/18 09:38 Dose: 75 mg Dextrose (Dextrose 50% Inj) 0 ml IV STAT PRN; Protocol PRN Reason: Hypoglycemia Protocol Dextrose (Glutose 15) 0 gm PO ONCE PRN; Protocol PRN Reason: Hypoglycemia Protocol Glucagon (Glucagen Diagnostic Kit) 0 mg IM STAT PRN; Protocol PRN Reason: Hypoglycemia Protocol Heparin Sodium (Porcine) (Heparin) 5,000 units SC Q8 [facility] Last Admin: 06/03/18 05:59 Dose: 5,000 units Hydrochlorothiazide (Microzide) 12.5 mg PO DAILY [facility] Last Admin: 06/02/18 09:39 Dose: 12.5 mg Sodium Chloride (Sodium Chloride 0.9%) 1,000 mls @ 100 mls/hr IV .Q10H [facility] Last Admin: 06/03/18 01:45 Dose: 100 mls/hr Dextrose (Dextrose 5% In Water 1000 Ml) 1,000 mls @ 0 mls/hr IV .Q0M PRN; Protocol; Per Protocol PRN Reason: Hypoglycemia Protocol Vancomycin/Sodium Chloride (Vancomycin 1 Gm/Ns 200 Ml) 1 gm in 200 mls @ 133.333 mls/hr IVPB Q24H [facility] PRN Reason: Protocol Last Admin: 06/02/18 13:43 Dose: 133.333 mls/hr Cefazolin Sodium/Dextrose (Ancef Iv 1 Gm Duplex) 1 gm in 50 mls @ 100 mls/hr IVPB Q8H [facility] PRN Reason: Protocol Last Admin: 06/03/18 05:45 Dose: 100 mls/hr Insulin Detemir (Levemir) 8 unit SC DAILY [facility] Last Admin: 06/02/18 09:38 Dose: 8 units Lisinopril (Zestril) 10 mg PO BID [facility] Last Admin: 06/02/18 17:07 Dose: 10 mg Potassium Chloride (K-Dur 20 Meq Er Tab) 40 meq PO DAILY [facility] Stop: 06/04/18 14:46 Last Admin: 06/02/18 14:37 Dose: 40 meq - Labs Labs: 06/03/18 07:06 06/02/18 07:47 - Constitutional Appears: Well, Non-toxic, No Acute Distress - Extremities Exam Additional comments: LLE focused physical exam: VASC: DP and PT pulses nonpalpable 2/2 edema. Temperature gradient warm to warm. Non-pitting edema extending from digits to ankle joint, decreased. NEURO: Gross sensation diminished. DERM: Erythema extending from digits to ankle joint has resolved. No open lesions noted. Webspaces 1-4 clean/dry/intact, no maceration noted. Raised, purple plaques measuring approximately 0.4 x 0.4 cm with overlying silver scales noted to anterior and lateral aspects of leg. ORTHO: No pain on palpation noted. Muscle strength 5/5 for all dorsiflexors, plantarflexors, inverters, and everters. - Neurological Exam Neurological Exam: Alert, Awake, Oriented x3 - Psychiatric Exam Psychiatric exam: Normal Affect, Normal Mood Assessment and Plan - Assessment and Plan (Free Text) Assessment: 73F with left foot cellulitis, resolving Plan: Patient seen and evaluated alongside attending, Dr. Salamanca Afebrile, WBC 5.8 Cellulitis resolving - will continue to monitor Continue abx per ID - Ancef, Vancomycin Stable for discharge per podiatric standpoint -Recommend patient to be discharged home Rx Augmentin x10 days -Patient to follow up with Dr. Salamanca in office within 1 week of discharge Podiatry will continue to follow
[2018-06-03 08:08] LABS: ALB/GLOB RATIO 1.2 (1.0-2.1); ALBUMIN 3.6 g/dL (3.5-5.0); ALT/SGPT 41 U/L (9-52); AST/SGOT 44 U/L (14-36); BLOOD UREA NITROGEN 16 mg/dL (7-17); CALCIUM 8.8 mg/dl (8.6-10.4); GFR AFRICAN-AMERICAN > 60; GFR NON-AFRICAN AMERICAN > 60
--- NOTE | 2018-06-03 08:14 | CP.PCM.PN ---
Subjective - Date & Time of Evaluation Date of Evaluation: 06/03/18 Time of Evaluation: 08:00 - Subjective Subjective: Pt L foot still swollen; still unable to go to bedside commode w/o assistance No CP, no SOB, no diarrhea, no n/v, no cough K stll low despite 40 mEq of K supplement Objective - Vital Signs/Intake and Output Vital Signs (last 24 hours): Temp Pulse Resp BP Pulse Ox 98.4 F 72 18 186/79 H 98 06/03/18 07:41 06/03/18 07:41 06/03/18 07:41 06/03/18 07:41 06/03/18 07:55 - Medications Medications: Current Medications Carvedilol (Coreg) 12.5 mg PO BID [facility] Last Admin: 06/02/18 17:07 Dose: 12.5 mg Clopidogrel Bisulfate (Plavix) 75 mg PO DAILY [facility] Last Admin: 06/02/18 09:38 Dose: 75 mg Dextrose (Dextrose 50% Inj) 0 ml IV STAT PRN; Protocol PRN Reason: Hypoglycemia Protocol Dextrose (Glutose 15) 0 gm PO ONCE PRN; Protocol PRN Reason: Hypoglycemia Protocol Glucagon (Glucagen Diagnostic Kit) 0 mg IM STAT PRN; Protocol PRN Reason: Hypoglycemia Protocol Heparin Sodium (Porcine) (Heparin) 5,000 units SC Q8 [facility] Last Admin: 06/03/18 05:59 Dose: 5,000 units Sodium Chloride (Sodium Chloride 0.9%) 1,000 mls @ 100 mls/hr IV .Q10H [facility] Last Admin: 06/03/18 01:45 Dose: 100 mls/hr Dextrose (Dextrose 5% In Water 1000 Ml) 1,000 mls @ 0 mls/hr IV .Q0M PRN; Protocol; Per Protocol PRN Reason: Hypoglycemia Protocol Vancomycin/Sodium Chloride (Vancomycin 1 Gm/Ns 200 Ml) 1 gm in 200 mls @ 133.333 mls/hr IVPB Q24H [facility] PRN Reason: Protocol Last Admin: 06/02/18 13:43 Dose: 133.333 mls/hr Cefazolin Sodium/Dextrose (Ancef Iv 1 Gm Duplex) 1 gm in 50 mls @ 100 mls/hr IVPB Q8H [facility] PRN Reason: Protocol Last Admin: 06/03/18 05:45 Dose: 100 mls/hr Insulin Detemir (Levemir) 8 unit SC DAILY [facility] Last Admin: 06/02/18 09:38 Dose: 8 units Lisinopril (Zestril) 10 mg PO BID [facility] Last Admin: 06/02/18 17:07 Dose: 10 mg Potassium Chloride (K-Dur 20 Meq Er Tab) 40 meq PO DAILY [facility] Stop: 06/04/18 14:46 Last Admin: 06/02/18 14:37 Dose: 40 meq Spironolactone (Aldactone) 25 mg PO BID [facility] - Labs Labs: 06/03/18 07:06 06/03/18 07:06 - Constitutional Appears: No Acute Distress - Eye Exam Eye Exam: Normal appearance - ENT Exam ENT Exam: Mucous Membranes Moist - Neck Exam Neck Exam: Full ROM. absent: Lymphadenopathy - Respiratory Exam Respiratory Exam: Clear to Ausculation Bilateral. absent: Decreased Breath Sounds, Rales, Rhonchi, Wheezes - Cardiovascular Exam Cardiovascular Exam: +S1, +S2. absent: Gallop, REGULAR RHYTHM, JVD - GI/Abdominal Exam GI & Abdominal Exam: Soft. absent: Tenderness - Extremities Exam Extremities Exam: Full ROM, Normal Capillary Refill, Pedal Edema. absent: Calf Tenderness, Joint Swelling Assessment and Plan - Assessment and Plan (Free Text) Assessment: L foot Cellulitis ; unsteady Gait HTN, Hypokalemia; NIDDM Change HCTZ to spirolactone; Check mg/ monitor k Cont other meds
[2018-06-03] MEDS: Potassium Chloride 20 mEq ER Tab PO SCH (10:21)
[2018-06-03] MEDS: Insulin Detemir 100 units/ml Vial (Levemir) SC SCH (10:22)
[2018-06-03] MEDS: Vancomycin 1 gm/NS 200 ml 1 GM/200 ML BAG IVPB SCH (13:43)
--- NOTE | 2018-06-03 17:06 | CP.PCM.PN ---
Subjective - Date & Time of Evaluation Date of Evaluation: 06/03/18 Time of Evaluation: 09:00 - Subjective Subjective: c/o pain cultures so far neg Objective - Vital Signs/Intake and Output Vital Signs (last 24 hours): Temp Pulse Resp BP Pulse Ox 98.5 F 67 20 157/77 H 98 06/03/18 15:00 06/03/18 15:00 06/03/18 15:00 06/03/18 15:00 06/03/18 15:00 - Medications Medications: Current Medications Carvedilol (Coreg) 12.5 mg PO BID [facility] Last Admin: 06/03/18 10:21 Dose: 12.5 mg Clopidogrel Bisulfate (Plavix) 75 mg PO DAILY [facility] Last Admin: 06/03/18 10:21 Dose: 75 mg Heparin Sodium (Porcine) (Heparin) 5,000 units SC Q8 [facility] Last Admin: 06/03/18 13:17 Dose: 5,000 units Sodium Chloride (Sodium Chloride 0.9%) 1,000 mls @ 100 mls/hr IV .Q10H [facility] Last Admin: 06/03/18 01:45 Dose: 100 mls/hr Vancomycin/Sodium Chloride (Vancomycin 1 Gm/Ns 200 Ml) 1 gm in 200 mls @ 133.333 mls/hr IVPB Q24H [facility] PRN Reason: Protocol Last Admin: 06/03/18 13:43 Dose: 133.333 mls/hr Cefazolin Sodium/Dextrose (Ancef Iv 1 Gm Duplex) 1 gm in 50 mls @ 100 mls/hr IVPB Q8H [facility] PRN Reason: Protocol Last Admin: 06/03/18 13:11 Dose: 100 mls/hr Insulin Detemir (Levemir) 8 unit SC DAILY [facility] Last Admin: 06/03/18 10:22 Dose: 8 units Lisinopril (Zestril) 10 mg PO BID [facility] Last Admin: 06/03/18 10:21 Dose: 10 mg Potassium Chloride (K-Dur 20 Meq Er Tab) 40 meq PO DAILY [facility] Stop: 06/04/18 14:46 Last Admin: 06/03/18 10:21 Dose: 40 meq Spironolactone (Aldactone) 25 mg PO BID [facility] Last Admin: 06/03/18 10:21 Dose: 25 mg - Labs Labs: 06/03/18 07:06 06/03/18 07:06 - Constitutional Appears: Non-toxic, Chronically Ill - Head Exam Head Exam: NORMOCEPHALIC - Eye Exam Eye Exam: PERRL - ENT Exam ENT Exam: Mucous Membranes Dry - Neck Exam Neck Exam: absent: Lymphadenopathy - Respiratory Exam Respiratory Exam: Decreased Breath Sounds - Cardiovascular Exam Cardiovascular Exam: REGULAR RHYTHM - GI/Abdominal Exam GI & Abdominal Exam: Distended - Rectal Exam Rectal Exam: Deferred - Extremities Exam Extremities Exam: Pedal Edema, Tenderness. absent: Calf Tenderness - Back Exam Back Exam: absent: CVA tenderness (L), CVA tenderness (R) - Neurological Exam Neurological Exam: Alert, Awake, Oriented x3 Neuro motor strength exam: Left Upper Extremity: 4, Right Upper Extremity: 4, Left Lower Extremity: 4, Right Lower Extremity: 4 - Psychiatric Exam Psychiatric exam: Normal Mood Assessment and Plan - Assessment and Plan (Free Text) Assessment: cont iv rx for cellulitis podiatry eval in progress etiology of anemia unclear
[2018-06-03] MEDS ORDERED: Iodixanol 320 MG/ML 100 ML BOTTLE IV ONE (19:16)
--- NOTE | 2018-06-03 20:27 | PCM.STROKE ---
Interval History Critical Care Time Spent (in minutes): 40 Stroke Date: 06/03/18 Interval History: Patient is a 73 yo female pmhx of HTN and DM who is admited to the hospital for Left foot Cellulitis. Code Stroke was called at 7:06pm for weakness and difficulty breathing. Patient was noted to have right upper arm weakness, 3/5 with flexion and extension, dropping of right side of her face and lip. Dr Randall Cunningham , stroke neurologist hydro station supervisor was consulted and made aware. no TPA was given, as per patient was outside of the window of treatment. Patient was taken for a CT head without contrast via stretcher, with oxygen mask provided. vRAD reading is pending at this time. 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 CT angiogram of head and MRI without contrast was ordered STAT. the following medications were ordered STAT: Aspirin 325mg, Crestor 20mg. Patient is already taking Plavix 75mg. NIH stroke score is 3. 2D echo was ordered for tomorrow. Patient to be transferred to Telemetry floor. PMD Dr Ken Person was notified of course of patient care. EEG was ordered for next day. Neurologist Dr Eladio Odell was notified of course of patient care. Bilateral Carotid doppler was ordered for next day, as per Dr Odell request. - Education Written Stroke Education provided regarding: personal risk factors, stroke warning sign/symptoms, how to activate emergency medical services, need to follow up after discharge NIHSS Stroke Scale - Date/Time Evaluation Performed Date Performed: 06/03/18 Time Performed: 19:55 When Was NIHSS Performed: Code Stroke - How Severe is the Stroke Level of Consciousness: 0=Alert LOC to Questions: 0=Both comments correct LOC to commands: 0=Obeys both correctly Best Gaze: 0=Normal Visual: 0=No visual loss Facial: 2=Partial (lower face paralysis) Motor Arm - Left: 0=No drift Motor Arm - Right: 0=No drift Motor Leg - Left: 0=No drift Motor Leg - Right: 0=No drift Limb Ataxia: 0=Absent Sensory: 0=Normal Best Language: 0=No aphasia Dysarthia: 1=Mild to moderate slurring Extinction & Inattention (Neglect): 0=Normal, no object Score: 3 Exam - Vital Sign Vital Signs: Temp Pulse Resp BP Pulse Ox 98.4 F 74 20 190/84 H 98 06/03/18 19:00 06/03/18 19:00 06/03/18 15:00 06/03/18 19:00 06/03/18 15:00 Constitutional: No distress Cardiovascular: Regular rate & rhythm Neuro motor strength exam: Left Upper Extremity: 5, Right Upper Extremity: 3, Left Lower Extremity: 5, Right Lower Extremity: 5 - Data reviewed Laboratory results: 06/03/18 07:06 06/03/18 07:06 Hemoglobin A1c 7.2 % (4.2-6.5) H 06/03/18 07:06
[2018-06-04] MEDS: ceFAZolin IV 1 gm in Dextrose 1 GM/50 ML BAG IVPB SCH ×3 (04:00→21:23)
[2018-06-04] MEDS: Sodium Chloride 0.9% 1,000 ML IV SCH ×3 (06:30→16:40)
[2018-06-04 06:51] LABS: BASO % 0.2 % (0.0-2.0); EOS # 0.2 K/uL (0.0-0.7); EOS % 3.7 % (0.0-4.0); HEMOGLOBIN 10.6 g/dL (11.0-16.0); LYMPH # 0.9 K/uL (1.0-4.3); LYMPH % 17.3 % (20.0-40.0); MEAN CELL VOLUME 94.6 fL (81.0-99.0); MEAN CORPUSCULAR HEMOGLOBIN 32.5 pg (27.0-31.0); MEAN CORPUSCULAR HGB CONC 34.4 g/dL (33.0-37.0); MEAN PLATELET VOLUME 7.3 fL (7.2-11.7); MONO # 0.4 K/uL (0.0-0.8); MONO % 7.7 % (0.0-10.0); NEUT # 3.9 K/uL (1.8-7.0); NEUT % 71.1 % (50.0-75.0); RBC 3.25 Mil/uL (3.80-5.20); WHITE BLOOD COUNT 5.5 K/uL (4.8-10.8)
[2018-06-04 07:21] LABS: LDL CHOLESTEROL 107 mg/dL (0-129)
[2018-06-04 07:36] LABS: BLOOD UREA NITROGEN 14 mg/dL (7-17); GFR AFRICAN-AMERICAN > 60; GFR NON-AFRICAN AMERICAN > 60; HDL CHOLESTEROL 12 mg/dL (30-70)
[2018-06-04] MEDS: Potassium Chloride 20 mEq ER Tab PO SCH (10:08)
[2018-06-04] MEDS: Insulin Detemir 100 units/ml Vial (Levemir) SC SCH (10:09)
--- NOTE | 2018-06-04 10:10 | CP.PCM.PN ---
Subjective - Date & Time of Evaluation Date of Evaluation: 06/04/18 Time of Evaluation: 10:10 - Subjective Subjective: Podiatry Progress Note - Dr. Salamanca 73F PMHx DM, HTN seen and evaluated at bedside for left foot cellulitis. Patient returning from echo at time of visit. Code stroke called yesterday evening; at present RUE weakness and right sided facial drooping noted. No redness and swelling present to LLE. Objective - Vital Signs/Intake and Output Vital Signs (last 24 hours): Temp Pulse Resp BP Pulse Ox 98.7 F 76 20 177/93 H 97 06/04/18 07:15 06/04/18 10:06 06/04/18 07:15 06/04/18 10:07 06/04/18 07:15 Intake and Output: 06/04/18 06/04/18 06:59 18:59 Intake Total 320 Balance 320 - Medications Medications: Current Medications Aspirin (Aspirin) 325 mg PO DAILY [facility] Last Admin: 06/03/18 20:42 Dose: 325 mg Carvedilol (Coreg) 12.5 mg PO BID [facility] Last Admin: 06/04/18 10:07 Dose: 12.5 mg Clopidogrel Bisulfate (Plavix) 75 mg PO DAILY [facility] Last Admin: 06/04/18 10:08 Dose: 75 mg Heparin Sodium (Porcine) (Heparin) 5,000 units SC Q8 [facility] Last Admin: 06/04/18 06:03 Dose: 5,000 units Sodium Chloride (Sodium Chloride 0.9%) 1,000 mls @ 100 mls/hr IV .Q10H [facility] Last Admin: 06/04/18 07:52 Dose: 100 mls/hr Vancomycin/Sodium Chloride (Vancomycin 1 Gm/Ns 200 Ml) 1 gm in 200 mls @ 133.333 mls/hr IVPB Q24H [facility] PRN Reason: Protocol Last Admin: 06/03/18 13:43 Dose: 133.333 mls/hr Cefazolin Sodium/Dextrose (Ancef Iv 1 Gm Duplex) 1 gm in 50 mls @ 100 mls/hr IVPB Q8H [facility] PRN Reason: Protocol Last Admin: 06/04/18 04:00 Dose: 100 mls/hr Insulin Detemir (Levemir) 8 unit SC DAILY [facility] Last Admin: 06/04/18 10:09 Dose: 8 units Lisinopril (Zestril) 10 mg PO BID [facility] Last Admin: 06/04/18 10:07 Dose: 10 mg Potassium Chloride (K-Dur 20 Meq Er Tab) 40 meq PO DAILY [facility] Stop: 06/04/18 14:46 Last Admin: 06/04/18 10:08 Dose: 40 meq Rosuvastatin Calcium (Crestor) 20 mg PO HS [facility] Last Admin: 06/03/18 21:53 Dose: Not Given Spironolactone (Aldactone) 25 mg PO BID [facility] Last Admin: 06/04/18 10:08 Dose: 25 mg - Labs Labs: 06/04/18 06:38 06/04/18 06:38 - Constitutional Appears: No Acute Distress - Extremities Exam Additional comments: LLE focused physical exam: VASC: DP and PT pulses nonpalpable 2/2 edema. Temperature gradient warm to warm. Non-pitting edema extending from digits to ankle joint, decreased. NEURO: Gross sensation diminished. DERM: Erythema extending from digits to ankle joint has resolved. No open lesions noted. Webspaces 1-4 clean/dry/intact, no maceration noted. Raised, purple plaques measuring approximately 0.4 x 0.4 cm with overlying silver scales noted to anterior and lateral aspects of leg. ORTHO: No pain on palpation noted. Muscle strength 5/5 for all dorsiflexors, plantarflexors, inverters, and everters. - Neurological Exam Neurological Exam: Alert, Awake Assessment and Plan - Assessment and Plan (Free Text) Assessment: 73F with left foot cellulitis, resolved Plan: Patient seen and evaluated Discussed with attending, Dr. Salamanca Afebrile, WBC 5.5 Cellulitis resolved Continue abx per ID - Ancef, Vancomycin Medical management per primary team -Recommend patient to be discharged home Rx Augmentin x10 days -Patient to follow up with Dr. Salamanca in office within 1 week of discharge Podiatry will s/o at this time, please reconsult if new issues arise
--- NOTE | 2018-06-04 10:44 | CT ---
Date of service: 06/03/2018 PROCEDURE: CT HEAD WITHOUT CONTRAST. HISTORY: rule out stroke COMPARISON: None available. TECHNIQUE: Axial computed tomography images were obtained through the head/brain without intravenous contrast. Radiation dose: Total exam DLP = 956.03 mGy-cm. This CT exam was performed using one or more of the following dose reduction techniques: Automated exposure control, adjustment of the mA and/or kV according to patient size, and/or use of iterative reconstruction technique. FINDINGS: HEMORRHAGE: No intracranial hemorrhage. 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 There are mild chronic microangiopathic changes. There is also an old infarction in the right anterior sub insular white matter. There is no abnormal extra-axial fluid collection. 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 There is expansion of the sella turcica and partial destruction of the clivus. VENTRICLES: There is mild age-related global parenchymal volume loss and proportionate enlargement of the ventricles and cortical sulci. CALVARIUM: The calvarium is normal. PARANASAL SINUSES: Predominantly clear. MASTOID AIR CELLS: Predominantly clear. OTHER FINDINGS: None. IMPRESSION: No acute intracranial abnormality.If there is a persistent focal neurologic deficit and an ongoing clinical concern for acute infarction, an MRI of the brain without intravenous contrast would be a more sensitive modality for evaluation of hyperacute/acute ischemic infarction. 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 Mild chronic microangiopathic changes and mild age-related global parenchymal volume loss. 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 The differential considerations include craniopharyngioma (adult type), and less likely Rathke's cleft cyst, dermoid, epidermoid or arachnoid cyst. An MRI of the brain without and with intravenous contrast would be helpful for further evaluation. A preliminary report was provided by [employer].
--- NOTE | 2018-06-04 10:59 | CT ---
PROCEDURE: CTA HEAD AND NECK WITH CONTRAST HISTORY: code stroke COMPARISON: None available. TECHNIQUE: Initial noncontrast head CT was performed. Subsequently, CT angiogram of the head and neck were performed after the intravenous administration of 80 mL of Omnipaque 350. Contiguous 1.5mm thick images were obtained in the axial plane of the neck. 2-D coronal and sagittal MPR images were obtained. Imaging postprocessing was performed with 3-D images also obtained. A delayed contrast head CT was also obtained. This CT exam was performed using one or more of the following dose reduction techniques: Automated exposure control, adjustment of the mA and/or kV according to patient size, and/or use of iterative reconstruction technique. Contrast dose: Low osmolar contrast was injected intravenously Radiation dose: Total exam DLP = 566.69 mGy-cm. FINDINGS: HEAD: Right: The intracranial internal carotid artery, and anterior and middle cerebral arteries are widely patent. Left: The intracranial internal carotid artery, and anterior and middle cerebral arteries are widely patent. Posterior circulation: The visualized intracranial vertebral arteries, basilar artery and posterior cerebral arteries are widely patent. There is no endoluminal filling defect to suggest thrombus. There is no intracranial saccular aneurysm. There is no abnormal enhancement on the postcontrast CT. NECK: There is a three vessel aortic arch. There is no stenosis at the origins of the great vessels at the level of the aortic arch. There is retropharyngeal course of both internal carotid arteries. Right Carotid: On the right, the common carotid, internal carotid and external carotid arteries are widely patent. There is no hemodynamically significant stenosis in the internal carotid artery by NASCET criteria. Left Carotid: On the left, the common carotid, internal carotid and external carotid arteries are widely patent.There is no hemodynamically significant stenosis in the internal carotid arteries. There is no hemodynamically significant stenosis in the internal carotid artery by NASCET criteria. The vertebral arteries are widely patent. The visualized soft tissues of the neck are normal. The visualized brain and cervical spine are within normal limits. The lung apices are clear. IMPRESSION: 1. No evidence of endoluminal thrombus,occlusion or definite significant stenosis in the intracranial arteries. 2. No evidence of hemodynamically significant stenosis in the internal carotid arteries. 3. Patent bilateral vertebral arteries. A preliminary report was provided by [employer].
--- NOTE | 2018-06-04 12:46 | MRI ---
Date of service: 06/04/2018 PROCEDURE: MRI BRAIN WITHOUT CONTRAST HISTORY: code stroke COMPARISON: Noncontrast head CT performed on 06/03/2018. TECHNIQUE: Multiplanar, multisequence MR images of the brain were obtained without intravenous contrast enhancement. FINDINGS: HEMORRHAGE: None DWI: There is multifocal restricted diffusion in the left centrum semiovale, parietal subcortical white matter and ashley radiata as well as external capsule. BRAIN PARENCHYMA: There are severe chronic microangiopathic changes. There is no abnormal extra-axial fluid collection. The midline sagittal structures are normal. There is a CSF intensity cystic mass in the right skullbase. VENTRICLES: There is moderate age-related global parenchymal volume loss and proportionate enlargement of the ventricles and cortical sulci. CRANIUM: There is normal bone marrow signal pattern. ORBITS: Grossly unremarkable. PARANASAL SINUSES/MASTOIDS: Clear VASCULAR SYSTEM: There are normal signal voids in the larger intracranial arteries. OTHER FINDINGS: None. IMPRESSION: 1. Acute left MCA territory infarction involving the centrum semiovale, parietal subcortical white matter, ashley radiata and external capsule. 2. Severe chronic microangiopathic changes and moderate age-related global parenchymal volume loss. 3. Incompletely imaged and characterized cystic mass in the right skullbase. A dedicated MRI of the brain without and with intravenous contrast with skullbase protocol is recommended after patient is clinically stable for further evaluation. Important findings were discussed with nurse Burciaga on 06/04/2018 at 12:40 p.m.
[2018-06-04] MEDS: Vancomycin 1 gm/NS 200 ml 1 GM/200 ML BAG IVPB SCH (14:00)
--- NOTE | 2018-06-04 17:44 | CP.PCM.PN ---
Subjective - Date & Time of Evaluation Date of Evaluation: 06/04/18 Time of Evaluation: 09:00 - Subjective Subjective: Code stroke called yesterday evening; at present RUE weakness and right sided facial drooping noted. Objective - Vital Signs/Intake and Output Vital Signs (last 24 hours): Temp Pulse Resp BP Pulse Ox 98.5 F 74 20 156/81 H 96 06/04/18 15:08 06/04/18 16:32 06/04/18 15:08 06/04/18 15:08 06/04/18 15:08 Intake and Output: 06/04/18 06/04/18 06:59 18:59 Intake Total 320 850 Balance 320 850 - Medications Medications: Current Medications Aspirin (Aspirin) 325 mg PO DAILY [facility] [place] Last Admin: 06/04/18 10:19 Dose: 325 mg Carvedilol (Coreg) 12.5 mg PO BID [facility] [place] Last Admin: 06/04/18 10:07 Dose: 12.5 mg Clopidogrel Bisulfate (Plavix) 75 mg PO DAILY [facility] [place] Last Admin: 06/04/18 10:08 Dose: 75 mg Sodium Chloride (Sodium Chloride 0.9%) 1,000 mls @ 100 mls/hr IV .Q10H [facility] Last Admin: 06/04/18 07:52 Dose: 100 mls/hr Vancomycin/Sodium Chloride (Vancomycin 1 Gm/Ns 200 Ml) 1 gm in 200 mls @ 133.333 mls/hr IVPB Q24H [facility] PRN Reason: Protocol Last Admin: 06/04/18 14:00 Dose: 133.333 mls/hr Cefazolin Sodium/Dextrose (Ancef Iv 1 Gm Duplex) 1 gm in 50 mls @ 100 mls/hr IVPB Q8H [facility] PRN Reason: Protocol Last Admin: 06/04/18 14:08 Dose: 100 mls/hr Insulin Detemir (Levemir) 8 unit SC DAILY [facility] [place] Last Admin: 06/04/18 10:09 Dose: 8 units Lisinopril (Zestril) 10 mg PO BID [facility] [place] Last Admin: 06/04/18 10:07 Dose: 10 mg Rosuvastatin Calcium (Crestor) 20 mg PO HS [facility] [place] Last Admin: 06/03/18 21:53 Dose: Not Given Spironolactone (Aldactone) 25 mg PO BID [facility] [place] Last Admin: 06/04/18 10:08 Dose: 25 mg - Labs Labs: 06/04/18 06:38 06/04/18 06:38 - Constitutional Appears: Non-toxic, Chronically Ill - Head Exam Head Exam: NORMOCEPHALIC - Eye Exam Eye Exam: PERRL - ENT Exam ENT Exam: Mucous Membranes Dry - Neck Exam Neck Exam: absent: Lymphadenopathy - Respiratory Exam Respiratory Exam: Decreased Breath Sounds - Cardiovascular Exam Cardiovascular Exam: REGULAR RHYTHM - GI/Abdominal Exam GI & Abdominal Exam: Distended - Rectal Exam Rectal Exam: Deferred - Extremities Exam Extremities Exam: Pedal Edema. absent: Tenderness - Back Exam Back Exam: absent: CVA tenderness (L), CVA tenderness (R) - Neurological Exam Neurological Exam: Alert, Awake, Oriented x3 Neuro motor strength exam: Left Upper Extremity: 4, Right Upper Extremity: 2/1, Left Lower Extremity: 4, Right Lower Extremity: 3 - Psychiatric Exam Psychiatric exam: Normal Mood Assessment and Plan (1) CVA (cerebral vascular accident) Status: Acute (2) CVA (cerebral vascular accident) Status: Acute - Assessment and Plan (Free Text) Assessment: acute cva cellulitis resolved all cultures negative awat Neuro eval /MRI
--- NOTE | 2018-06-04 17:54 | CP.PCM.PN ---
Subjective - Date & Time of Evaluation Date of Evaluation: 06/04/18 Time of Evaluation: 17:52 - Subjective Subjective: S: Awake. C/o LUE weakness. Objective - Vital Signs/Intake and Output Vital Signs (last 24 hours): Temp Pulse Resp BP Pulse Ox 98.5 F 74 20 156/81 H 96 06/04/18 15:08 06/04/18 16:32 06/04/18 15:08 06/04/18 15:08 06/04/18 15:08 Intake and Output: 06/04/18 06/04/18 06:59 18:59 Intake Total 320 850 Balance 320 850 - Medications Medications: Current Medications Aspirin (Aspirin) 325 mg PO DAILY [facility] Last Admin: 06/04/18 10:19 Dose: 325 mg Carvedilol (Coreg) 12.5 mg PO BID [facility] Last Admin: 06/04/18 10:07 Dose: 12.5 mg Clopidogrel Bisulfate (Plavix) 75 mg PO DAILY [facility] Last Admin: 06/04/18 10:08 Dose: 75 mg Sodium Chloride (Sodium Chloride 0.9%) 1,000 mls @ 100 mls/hr IV .Q10H [facility] Last Admin: 06/04/18 07:52 Dose: 100 mls/hr Cefazolin Sodium/Dextrose (Ancef Iv 1 Gm Duplex) 1 gm in 50 mls @ 100 mls/hr IVPB Q8H [facility] PRN Reason: Protocol Last Admin: 06/04/18 14:08 Dose: 100 mls/hr Insulin Detemir (Levemir) 8 unit SC DAILY [facility] Last Admin: 06/04/18 10:09 Dose: 8 units Lisinopril (Zestril) 10 mg PO BID [facility] Last Admin: 06/04/18 10:07 Dose: 10 mg Rosuvastatin Calcium (Crestor) 20 mg PO HS [facility] Last Admin: 06/03/18 21:53 Dose: Not Given Spironolactone (Aldactone) 25 mg PO BID [facility] Last Admin: 06/04/18 10:08 Dose: 25 mg - Labs Labs: 06/04/18 06:38 06/04/18 06:38 - Constitutional Appears: No Acute Distress - Head Exam Head Exam: NORMAL INSPECTION - ENT Exam ENT Exam: Normal Exam - Neck Exam Neck Exam: Normal Inspection - Respiratory Exam Respiratory Exam: NORMAL BREATHING PATTERN - Cardiovascular Exam Cardiovascular Exam: REGULAR RHYTHM - GI/Abdominal Exam GI & Abdominal Exam: Soft - Rectal Exam Rectal Exam: Deferred - Extremities Exam Extremities Exam: Tenderness - Neurological Exam Neurological Exam: Awake Neuro motor strength exam: Right Upper Extremity: 12/11 Assessment and Plan (1) CVA (cerebral vascular accident) Status: Acute (2) Cellulitis Status: Acute (3) Diabetes Status: Chronic (4) HTN (hypertension) Status: Chronic - Assessment and Plan (Free Text) Assessment: A?P : continue medicatons. Neurology consult.
--- NOTE | 2018-06-04 22:09 | CON ---
DATE: 06/04/2018 NEUROLOGY CONSULTATION REASON FOR CONSULTATION: Right-sided weakness and slurring of speech. HISTORY OF PRESENT ILLNESS: The patient is a 73-year-old female, who was admitted in the hospital with left foot cellulitis. Starting yesterday, the patient was noted to have weakness on the right side and was having difficulty with breathing. The patient was noted to have weakness in the right arm and had some slurring of speech. It was unknown what was the time of onset or when was she last seen well. The patient said that her slurring of speech has gotten better. Denies any difficulty with swallowing. REVIEW OF SYSTEMS: Denies any headache, dizziness, chest pain, shortness of breath, abdominal pain, constipation, diarrhea, dysuria, pyuria, cough, or sputum production. PAST MEDICAL HISTORY: Includes hypertension, diabetes mellitus. MEDICATIONS: At home included lisinopril and metformin. ALLERGIES: NO KNOWN DRUG ALLERGIES. SOCIAL HISTORY: The patient is a non-smoker, non-alcoholic, and does not use any illicit drugs. FAMILY HISTORY: Reviewed and noncontributory to the case. PHYSICAL EXAMINATION: GENERAL: The patient is an elderly, pleasant female, lying in the bed, in no acute distress. VITAL SIGNS: Her blood pressure is 177/93, heart rate 76 per minute, breathing at a rate of 16 per minute, and temperature is 98.7 degrees Fahrenheit. HEENT: Head is normocephalic and atraumatic. NECK: Supple. There are no carotid bruits. LUNGS: Clear. CVS: S1 and S2 audible. No murmurs. ABDOMEN: Soft and nontender. Bowel sounds are present. NEUROLOGIC EXAMINATION: Mental status: The patient is awake and alert, oriented to place, year, and person. Speech is mildly dysarthric. Cranial nerve examination: Pupils are 3 mm bilaterally, reactive to light. Visual tapia are full. Extraocular movements are intact. There is a slight decreased nasolabial fold on the right side. Tongue is midline. Motor examination: Tone is normal. There is right-sided hemiparesis with power in the right upper extremity of 1/5, power in the right lower extremity 2 to 3/5, power in left side is 5/5. Plantars are upgoing on the right and downgoing on the left side. Reflex is 1+ and symmetrical. Gait is deferred at the moment. Sensory exam, intact to soft touch and pinprick. LABORATORY DATA: Labs reviewed. CT scan of the head showed no acute pathology. WBC of 5.5, hemoglobin 10.6, hematocrit of 30.8, and platelets of . Sodium is 144, potassium 3.3, chloride of 103, carbon dioxide 28, BUN of 14, creatinine 0.8, and glucose of 126. IMPRESSION: Cerebrovascular accident with right-sided hemiparesis and mild dysarthria. RECOMMENDATIONS: 1. The patient to have an MRI of the brain without contrast. 2. The patient had a carotid Doppler study, which shows no significant stenosis. 3. The patient to have an echocardiogram. 4. The patient was started on aspirin, which is to be continued. The patient also to be continued on statin. 5. The patient to have physical therapy and speech therapy. 6. The patient was not given TPA as apparently the patient was out of time window for TPA administration. 7. Please continue supportive care and other treatments. Thank you for the opportunity to participate in the care of this patient. Vashti Odell MD
[2018-06-05] MEDS: Sodium Chloride 0.9% 1,000 ML IV SCH ×2 (02:45→04:25)
[2018-06-05] MEDS: ceFAZolin IV 1 gm in Dextrose 1 GM/50 ML BAG IVPB SCH ×3 (04:20→22:03)
--- NOTE | 2018-06-05 07:54 | CP.PCM.PN ---
Subjective - Date & Time of Evaluation Date of Evaluation: 06/05/18 Time of Evaluation: 07:45 - Subjective Subjective: Pt asleep; awaken and R side weak (more on upper extr); (+) MRI - acute CBVA No CP, no SOB, no edma, no cough, no diarrhea Objective - Vital Signs/Intake and Output Vital Signs (last 24 hours): Temp Pulse Resp BP Pulse Ox 98.7 F 82 20 178/82 H 97 06/05/18 04:00 06/05/18 04:00 06/05/18 04:00 06/05/18 04:00 06/05/18 04:00 - Medications Medications: Current Medications Aspirin (Aspirin) 325 mg PO DAILY [facility] Last Admin: 06/04/18 10:19 Dose: 325 mg Carvedilol (Coreg) 12.5 mg PO BID [facility] Last Admin: 06/04/18 17:55 Dose: 12.5 mg Clopidogrel Bisulfate (Plavix) 75 mg PO DAILY [facility] Last Admin: 06/04/18 10:08 Dose: 75 mg Sodium Chloride (Sodium Chloride 0.9%) 1,000 mls @ 100 mls/hr IV .Q10H [facility] Last Admin: 06/05/18 04:25 Dose: 100 mls/hr Cefazolin Sodium/Dextrose (Ancef Iv 1 Gm Duplex) 1 gm in 50 mls @ 100 mls/hr IVPB Q8H [facility] PRN Reason: Protocol Last Admin: 06/05/18 04:20 Dose: 100 mls/hr Insulin Detemir (Levemir) 8 unit SC DAILY [facility] Last Admin: 06/04/18 10:09 Dose: 8 units Lisinopril (Zestril) 10 mg PO BID [facility] Last Admin: 06/04/18 17:54 Dose: 10 mg Rosuvastatin Calcium (Crestor) 20 mg PO HS [facility] Last Admin: 06/04/18 21:23 Dose: 20 mg Spironolactone (Aldactone) 25 mg PO BID [facility] Last Admin: 06/04/18 17:55 Dose: 25 mg - Labs Labs: 06/04/18 06:38 06/04/18 06:38 - Constitutional Appears: No Acute Distress - Eye Exam Eye Exam: Normal appearance - ENT Exam ENT Exam: Mucous Membranes Moist - Neck Exam Neck Exam: Full ROM. absent: Lymphadenopathy, Normal Inspection - Respiratory Exam Respiratory Exam: Clear to Ausculation Bilateral. absent: Rales, Rhonchi, Wheezes - Cardiovascular Exam Cardiovascular Exam: REGULAR RHYTHM, +S1, +S2. absent: Gallop, JVD - GI/Abdominal Exam GI & Abdominal Exam: Soft. absent: Tenderness, Mass - Extremities Exam Extremities Exam: Full ROM, Normal Capillary Refill. absent: Calf Tenderness, Joint Swelling, Pedal Edema Assessment and Plan - Assessment and Plan (Free Text) Assessment: Ac CVA; NIDDM; Brain cyst Neuro f/up Stop IVF Conr meds
[2018-06-05] MEDS: Insulin Detemir 100 units/ml Vial (Levemir) SC SCH (09:38)
--- NOTE | 2018-06-05 10:51 | VASCLAB ---
Date of service: 06/04/2018 PROCEDURE: HISTORY: recent code stroke COMPARISON: None available. TECHNIQUE: Grayscale and duplex Doppler evaluation of the cervical carotid and vertebral arteries were performed. The common carotid, carotid bifurcations and cervical Internal Carotid Artery (ICA) and proximal External Carotid Artery (ECA) were evaluated. The vertebral arteries were evaluated for gross patency and flow direction. Report prepared by Dickson Burleson, BS, RVT FINDINGS: RIGHT CAROTID ARTERIES: 1. Common Carotid Artery: No significant focal plaque formation of the right common carotid artery. Maximum Peak Systolic velocity: 57 cm/sec: End-diastolic velocity 20 cm/sec. 2. Carotid Bifurcation: plaque formation. Maximum Peak Systolic velocity: 53 cm/sec: End-diastolic velocity 16 cm/sec. 3. Internal Carotid Artery: Plaque description: 3.1. Proximal Segment: Peak systolic velocity 54 cm/sec: End-diastolic velocity 21 cm/sec - % stenosis 0-15% 3.2. Middle Segment: Peak systolic velocity 39 cm/sec: End-diastolic velocity 17 cm/sec - % stenosis 0-15% 3.3. Distal Segment: Peak systolic velocity 63 cm/sec: End-diastolic velocity 26 cm/sec - % stenosis 0-15% 4. External Carotid Artery: No significant focal plaque formation. Peak systolic velocity 79 cm/sec 5. ICA/CCA Ratio: 1.1 LEFT CAROTID ARTERIES: 1. Common Carotid Artery: No significant focal plaque formation of the left common carotid artery. Maximum Peak Systolic velocity: 60 cm/sec: End-diastolic velocity 13 cm/sec. 2. Carotid Bifurcation: plaque formation. Maximum Peak Systolic velocity: 62 cm/sec: End-diastolic velocity 13 cm/sec. 3. Internal Carotid Artery: Plaque description: 3.1. Proximal Segment: Peak systolic velocity 56 cm/sec: End-diastolic velocity 22 cm/sec - % stenosis 0-15% 3.2. Middle Segment: Peak systolic velocity 48 cm/sec: End-diastolic velocity 22 cm/sec - % stenosis 0-15% 3.3. Distal Segment: Peak systolic velocity 67 cm/sec: End-diastolic velocity 27 cm/sec - % stenosis 0-15% 4. External Carotid Artery: No significant focal plaque formation. Peak systolic velocity 78 cm/sec 5. ICA/CCA Ratio: 1.1 VERTEBRAL ARTERIES: 1. Right Vertebral Artery: The right vertebral artery flow direction is antegrade. 2. Left Vertebral Artery: The left vertebral artery flow direction is antegrade. OTHER FINDINGS: 1. Right Brachial Blood pressure: 216 mmHg. 2. Left Brachial Blood pressure: 208 mmHg. IMPRESSION: RIGHT: Duplex scan does not suggest hemodynamically significant stenosis of the right extracranial carotid arteries. LEFT: Duplex scan does not suggest hemodynamically significant stenosis of the left extracranial carotid arteries.
[2018-06-05 14:16] LABS: BLOOD UREA NITROGEN 17 mg/dL (7-17); CALCIUM 8.7 mg/dl (8.6-10.4); GFR AFRICAN-AMERICAN > 60; GFR NON-AFRICAN AMERICAN > 60
--- NOTE | 2018-06-05 14:22 | CARD ---
APPROVED REPORT Date of service: 06/04/2018 EXAM: Two-dimensional and M-mode echocardiogram with Doppler and color Doppler. INDICATION Dizziness and Vertigo Syncope code stroke RISK FACTORS Hypertension Diabetes 2D DIMENSIONS IVSd1.1 (0.7-1.1cm)Aortic Root (2D)3.3 (2.0-3.7cm) LVDd3.8 (3.9-5.9cm)PWd1.0 (0.7-1.1cm) LVDs2.5 (2.5-4.0cm)FS (%) 33.1 % LVEF (%)69.0 (>50%) M-Mode DIMENSIONS Left Atrium (MM)1.92 (2.5-4.0cm)IVSd0.94 (0.7-1.1cm) Aortic Root2.90 (2.2-3.7cm)LVDd4.23 (4.0-5.6cm) Aortic Cusp Exc.1.20 (1.5-2.0cm)PWd0.91 (0.7-1.1cm) FS (%) 48 %LVDs2.21 (2.0-3.8cm) LVEF (%)75 (>50%) Mitral Valve MV E Hcmolosq23.9cm/sMV A Wdejpxtk408.0cm/sE/A ratio0.5 TDI E/Lateral E'0.0E/Medial E'0.0 Tricuspid Valve TR Peak [id number]/sTR Peak Gr.[id number] LEFT VENTRICLE The left ventricle is normal size. There is normal left ventricular wall thickness. The left ventricular function is normal. The left ventricular ejection fraction is within the normal range. No regional wall motion abnormalities noted. Transmitral Doppler flow pattern is Grade I-abnormal relaxation pattern. No left ventricle thrombus noted on this study. There is no ventricular septal defect visualized. There is no left ventricular aneurysm. There is no mass noted in the left ventricle. RIGHT VENTRICLE The right ventricle is normal size. There is normal right ventricular wall thickness. The right ventricular systolic function is normal. ATRIA The left atrium size is normal. The right atrium size is normal. The interatrial septum is intact with no evidence for an atrial septal defect. AORTIC VALVE The aortic valve is normal in structure and function. No aortic regurgitation is present. There is no aortic valvular stenosis. There is no aortic valvular vegetation. MITRAL VALVE The mitral valve is normal in structure and function. There is no evidence of mitral valve prolapse. There is no mitral valve stenosis. There is no mitral valve regurgitation noted. TRICUSPID VALVE The tricuspid valve is normal in structure and function. There is no tricuspid valve regurgitation noted. There is no tricuspid valve prolapse or vegetation. There is no tricuspid valve stenosis. PULMONIC VALVE The pulmonary valve is normal in structure and function. There is no pulmonic valvular regurgitation. There is no pulmonic valvular stenosis. GREAT VESSELS The aortic root is normal in size. The ascending aorta is normal in size. The pulmonary artery is normal. The IVC is normal in size and collapses >50% with inspiration. PERICARDIAL EFFUSION The pericardium appears normal. There is no pleural effusion. <Conclusion> The left ventricular function is normal. The left ventricular ejection fraction is within the normal range. No regional wall motion abnormalities noted.
--- NOTE | 2018-06-05 14:31 | CP.PCM.PN ---
Subjective - Date & Time of Evaluation Date of Evaluation: 06/05/18 Time of Evaluation: 08:00 - Subjective Subjective: events noted consider echo, neuro eval and cardio consults blood c/s repeated Objective - Vital Signs/Intake and Output Vital Signs (last 24 hours): Temp Pulse Resp BP Pulse Ox 99.6 F 82 18 153/77 H 100 06/05/18 07:00 06/05/18 07:00 06/05/18 07:00 06/05/18 09:38 06/05/18 07:00 Intake and Output: 06/05/18 06/05/18 06:59 18:59 Intake Total 1800 Output Total 600 Balance 1200 - Medications Medications: Current Medications Aspirin (Aspirin) 325 mg PO DAILY [facility] Last Admin: 06/05/18 09:38 Dose: 325 mg Carvedilol (Coreg) 12.5 mg PO BID [facility] Last Admin: 06/05/18 09:38 Dose: 12.5 mg Clopidogrel Bisulfate (Plavix) 75 mg PO DAILY [facility] Last Admin: 06/05/18 09:38 Dose: 75 mg Cefazolin Sodium/Dextrose (Ancef Iv 1 Gm Duplex) 1 gm in 50 mls @ 100 mls/hr IVPB Q8H [facility] PRN Reason: Protocol Last Admin: 06/05/18 11:45 Dose: 100 mls/hr Insulin Detemir (Levemir) 8 unit SC DAILY [facility] Last Admin: 06/05/18 09:38 Dose: 8 units Lisinopril (Zestril) 10 mg PO BID [facility] Last Admin: 06/05/18 09:38 Dose: 10 mg Rosuvastatin Calcium (Crestor) 20 mg PO HS [facility] Last Admin: 06/04/18 21:23 Dose: 20 mg Spironolactone (Aldactone) 25 mg PO BID [facility] Last Admin: 06/05/18 09:38 Dose: 25 mg - Labs Labs: 06/04/18 06:38 06/05/18 13:55 - Constitutional Appears: Non-toxic, Chronically Ill - Head Exam Head Exam: NORMOCEPHALIC - Eye Exam Eye Exam: absent: Scleral icterus - ENT Exam ENT Exam: Mucous Membranes Dry - Neck Exam Neck Exam: absent: Lymphadenopathy - Respiratory Exam Respiratory Exam: Decreased Breath Sounds - Cardiovascular Exam Cardiovascular Exam: REGULAR RHYTHM Assessment and Plan (1) CVA (cerebral vascular accident) Status: Acute (2) CVA (cerebral vascular accident) Status: Acute
--- NOTE | 2018-06-05 17:22 | PN ---
DATE: 06/05/2018 NEUROLOGY PROGRESS NOTE SUBJECTIVE: The patient is lying on the bed in no acute distress. Denies having any headache or dizziness. PHYSICAL EXAMINATION: VITAL SIGNS: Her blood pressure is 153/77, heart rate is 82 per minute, breathing at a rate of 16 per minute and temperature is 99.6 degree Fahrenheit. HEENT: Head is normocephalic and atraumatic. NECK: Supple. There are no carotid bruits. LUNGS: Clear. CARDIOVASCULAR: S1 and S2 audible. No murmurs. ABDOMEN: Soft, nontender. Bowel sounds are present. NEUROLOGIC: Mental Status: The patient is awake, alert and oriented to place and person. Speech is fluent. Cranial nerve: Pupils 3 mm bilaterally reactive to light. Visual tapia are full. Extraocular movements are intact. There is decreased nasolabial fold on the right side. Tongue is midline. Motor examination: There is right-sided hemiparesis. Power in the upper extremity is 1/5, power in the right lower extremity is 2 to 3/5. Power on the left side is 5/5. Plantar's are upgoing on the right side. LABORATORY DATA: Labs reviewed. MRI of the brain shows acute left MCA territory infarction involving the central semiovale of the parietal and subcortical white matter, ashley radiata and external capsule. Severe chronic microangiopathic changes and moderate age related global parenchyma volume loss. IMPRESSION: Cerebrovascular accident involving left middle cerebral artery distribution infarct. RECOMMENDATIONS: 1. The patient had carotid Doppler study, which shows no significant stenosis. 2. The patient had an echocardiogram done. The report is awaited. Please follow up the report. 3. The patient to be continued on aspirin and Plavix. 4. The patient also to be continued on Crestor. 5. The patient to have physical therapy and occupational therapy. 6. The patient is a good candidate for rehabilitation placement. 7. Please continue supportive care and treatment. Thank you for the opportunity to participate in the care of this patient. Vashit Odell MD
[2018-06-06] MEDS: ceFAZolin IV 1 gm in Dextrose 1 GM/50 ML BAG IVPB SCH ×3 (05:10→21:30)
--- NOTE | 2018-06-06 08:26 | CP.PCM.PN ---
Subjective - Date & Time of Evaluation Date of Evaluation: 06/06/18 Time of Evaluation: 08:12 - Subjective Subjective: Pt no complain exc right side weak; ?? Depress No CP, no SOB, no edema, no cough Objective - Vital Signs/Intake and Output Vital Signs (last 24 hours): Temp Pulse Resp BP Pulse Ox 97.7 F 76 20 107/52 L 100 06/06/18 08:10 06/06/18 08:10 06/06/18 08:10 06/06/18 08:10 06/06/18 08:10 Intake and Output: 06/06/18 06/06/18 06:59 18:59 Intake Total 170 Output Total 750 Balance -580 - Medications Medications: Current Medications Aspirin (Aspirin) 325 mg PO DAILY [facility] Last Admin: 06/05/18 09:38 Dose: 325 mg Carvedilol (Coreg) 12.5 mg PO BID [facility] Last Admin: 06/05/18 22:04 Dose: 12.5 mg Clopidogrel Bisulfate (Plavix) 75 mg PO DAILY [facility] Last Admin: 06/05/18 09:38 Dose: 75 mg Cefazolin Sodium/Dextrose (Ancef Iv 1 Gm Duplex) 1 gm in 50 mls @ 100 mls/hr IVPB Q8H [facility] PRN Reason: Protocol Last Admin: 06/06/18 05:10 Dose: 100 mls/hr Insulin Detemir (Levemir) 8 unit SC DAILY [facility] Last Admin: 06/05/18 09:38 Dose: 8 units Lisinopril (Zestril) 10 mg PO BID [facility] Last Admin: 06/05/18 22:04 Dose: 10 mg Rosuvastatin Calcium (Crestor) 20 mg PO HS [facility] Last Admin: 06/05/18 22:04 Dose: 20 mg Spironolactone (Aldactone) 25 mg PO BID [facility] Last Admin: 06/05/18 22:04 Dose: 25 mg - Labs Labs: 06/04/18 06:38 06/05/18 13:55 - Constitutional Appears: No Acute Distress - Eye Exam Eye Exam: Normal appearance - ENT Exam ENT Exam: Mucous Membranes Moist - Neck Exam Neck Exam: Full ROM. absent: Lymphadenopathy - Respiratory Exam Respiratory Exam: Clear to Ausculation Bilateral. absent: Decreased Breath Sounds, Rales, Rhonchi, Wheezes - Cardiovascular Exam Cardiovascular Exam: REGULAR RHYTHM, +S1, +S2. absent: Gallop, JVD, Murmur - GI/Abdominal Exam GI & Abdominal Exam: Soft. absent: Tenderness, Mass - Extremities Exam Extremities Exam: Full ROM, Normal Capillary Refill. absent: Calf Tenderness, Joint Swelling Assessment and Plan - Assessment and Plan (Free Text) Plan: Acute CVA; Cellulitis Hemiplegia/ paresis HTN, NIDDM, Hyperlipidemia Stop YARELIS Cont other meds
[2018-06-06] MEDS: Insulin Detemir 100 units/ml Vial (Levemir) SC SCH (10:10)
[2018-06-07] MEDS: ceFAZolin IV 1 gm in Dextrose 1 GM/50 ML BAG IVPB SCH ×3 (03:51→21:26)
--- NOTE | 2018-06-07 05:18 | CON ---
DATE: 06/06/2018 CHIEF COMPLAINT AND REASON FOR CONSULTATION: The patient is referred by Dr. Ken Rodgers for evaluation for possible post-stroke depression. The patient has been noted to be withdrawn, depressed with periods of confusion, sleeping a lot, and also not eating well. The patient had infarction involving the left MCA. HISTORY OF PRESENT ILLNESS: The patient is a 73-year-old female, Citizen Of [place] descent. The patient was admitted here with left foot cellulitis. The patient was later developed weakness of the right side and was having difficulty breathing and slurring speech. The patient was seen by Dr. Odell, neurologist, and diagnosed of CVA with right-sided weakness and mild dysarthria. The patient was referred for comanagement. The patient has been noted to have exhibiting signs and symptoms of depression, feeling withdrawn, feeling sad, sleeping a lot, anhedonic, and also not eating well and seems withdrawn since she had the stroke. The patient had an MRI of the brain done that showed the following findings: The patient has acute left MCA territory infarction involving the centrum semiovale, parietal subcortical white matter, ashley radiata, and external capsule, as well as severe chronic microangiopathic changes and moderate age-related global parenchymal volume. 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 The patient is followed by Dr. Odell, neurologist. The patient when seen today, noted to be somewhat depressed and withdrawn. She was seen with her , exhibiting signs and symptoms of post-stroke depression. PAST PSYCHIATRIC HISTORY: Denies any history of depression in the past, although according to the , the patient has been feeling down off and on for the last two years. PAST MEDICAL HISTORY: The patient has history of CVA, hypertension, diabetes, cellulitis of the foot, as well as history of brain mass, near syncope. ALLERGIES: THE PATIENT HAS NO KNOWN ALLERGIES. PSYCHOSOCIAL HISTORY: The patient is a retired employee of [employer]. She lives with her who is a business systems administrator. CURRENT MEDICATIONS: Include the following meds: Aldactone, aspirin, Coreg, cefazolin, rosuvastatin, insulin, and Plavix. DIAGNOSTIC IMAGING: CAT scan of the head done, showed the following findings: Mild chronic angiopathic changes and mild age-related global parenchymal volume. Showed cystic destructive mass in the central skull base. CAT scan of the head did not show any acute intracranial abnormalities, but the MRI picked up the evidence of the stroke. CAT scan had old infarction in the left prefrontal white matter. LABORATORY DATA: Glucose is 131, hemoglobin A1C is 7.2. TSH is 3.74. PHYSICAL EXAMINATION: VITAL SIGNS: Temperature is 98.6, pulse rate 74, blood pressure 134/70, respirations 20, oxygen sat is 97%. REVIEW OF SYSTEMS: GENERAL: The patient is alert, verbal, but looks withdrawn, depressed, seen with her at her bedside. SKIN: No diaphoresis. HEENT: No complaint of headache or dizziness. NECK: Supple. RESPIRATORY: No dyspnea. CARDIOVASCULAR: No chest pain. GASTROINTESTINAL: Appetite is viable. She states she has poor appetite. EXTREMITIES: Complaining of weakness. NEUROLOGIC: Alert. with periods of confusion. GENITOURINARY: No dysuria. MENTAL STATUS EXAMINATION: Elderly female of Citizen Of [place] descent, about 4 feet 11 inches, weighs 120 pounds. Mood is depressed. Affect is restricted. Speech is slow. Thought process, confused. Thought content, no overt psychosis. No suicidal or homicidal ideation. Attention and memory seem to be limited. Insight and judgment, limited. Impulse control is fair at this time. ASSESSMENT: Major depression, post stroke; history of left middle cerebral artery infarction; history of diabetes; hypertension; history of cystic mass. PLAN AND RECOMMENDATION: The patient was seen and meds reviewed. The patient is exhibiting signs and symptoms of post-stroke depression. We will add Lexapro 5 mg daily for treatment of depression. Eduardo Lee MD [facility]
[2018-06-07] MEDS: Insulin Detemir 100 units/ml Vial (Levemir) SC SCH (10:28)
[2018-06-07 12:59] LABS: BASO % 0.3 % (0.0-2.0); EOS # 0.4 K/uL (0.0-0.7); EOS % 4.5 % (0.0-4.0); HEMOGLOBIN 11.1 g/dL (11.0-16.0); LYMPH # 0.8 K/uL (1.0-4.3); LYMPH % 10.1 % (20.0-40.0); MEAN CELL VOLUME 94.9 fL (81.0-99.0); MEAN CORPUSCULAR HEMOGLOBIN 32.5 pg (27.0-31.0); MEAN CORPUSCULAR HGB CONC 34.2 g/dL (33.0-37.0); MEAN PLATELET VOLUME 7.3 fL (7.2-11.7); MONO # 0.9 K/uL (0.0-0.8); MONO % 10.7 % (0.0-10.0); NEUT # 6.2 K/uL (1.8-7.0); NEUT % 74.4 % (50.0-75.0); RBC 3.41 Mil/uL (3.80-5.20); RED CELL DISTRIBUTION WIDTH 14.3 % (11.5-14.5)
[2018-06-07 13:00] LABS: WHITE BLOOD COUNT 8.3 K/uL (4.8-10.8)
[2018-06-07 13:58] LABS: ALBUMIN 3.6 g/dL (3.5-5.0); CALCIUM 8.4 mg/dl (8.6-10.4)
--- NOTE | 2018-06-07 15:38 | CP.PCM.PN ---
Subjective - Date & Time of Evaluation Date of Evaluation: 06/07/18 Time of Evaluation: 09:00 - Subjective Subjective: weakness right side severe appears depressed all cultures neg await echo afebrile Objective - Vital Signs/Intake and Output Vital Signs (last 24 hours): Temp Pulse Resp BP Pulse Ox 98.9 F 65 18 116/66 98 06/07/18 07:30 06/07/18 14:44 06/07/18 12:15 06/07/18 12:15 06/07/18 12:15 Intake and Output: 06/07/18 06/07/18 06:59 18:59 Intake Total 150 300 Output Total 100 Balance 50 300 - Medications Medications: Current Medications Aspirin (Aspirin) 325 mg PO DAILY [facility] Last Admin: 06/07/18 09:45 Dose: 325 mg Carvedilol (Coreg) 12.5 mg PO BID [facility] Last Admin: 06/07/18 09:45 Dose: 12.5 mg Clopidogrel Bisulfate (Plavix) 75 mg PO DAILY [facility] Last Admin: 06/07/18 09:46 Dose: 75 mg Escitalopram Oxalate (Lexapro) 5 mg PO DAILY [facility] Last Admin: 06/07/18 10:28 Dose: 5 mg Cefazolin Sodium/Dextrose (Ancef Iv 1 Gm Duplex) 1 gm in 50 mls @ 100 mls/hr IVPB Q8H [facility] PRN Reason: Protocol Last Admin: 06/07/18 13:05 Dose: 100 mls/hr Insulin Detemir (Levemir) 8 unit SC DAILY [facility] Last Admin: 06/07/18 10:28 Dose: 8 units Rosuvastatin Calcium (Crestor) 20 mg PO HS [facility] Last Admin: 06/06/18 21:48 Dose: 20 mg Spironolactone (Aldactone) 25 mg PO BID [facility] Last Admin: 06/07/18 09:46 Dose: 25 mg - Labs Labs: 06/07/18 12:47 06/07/18 12:47 - Constitutional Appears: Chronically Ill - Head Exam Head Exam: NORMOCEPHALIC - Eye Exam Eye Exam: absent: Scleral icterus - ENT Exam ENT Exam: Mucous Membranes Dry - Neck Exam Neck Exam: absent: Lymphadenopathy - Respiratory Exam Respiratory Exam: Decreased Breath Sounds - Cardiovascular Exam Cardiovascular Exam: REGULAR RHYTHM - GI/Abdominal Exam GI & Abdominal Exam: Distended - Rectal Exam Rectal Exam: Deferred Assessment and Plan (1) CVA (cerebral vascular accident) Status: Acute (2) CVA (cerebral vascular accident) Status: Acute
[2018-06-07 16:55] VITALS: RESP 20
--- NOTE | 2018-06-07 18:30 | PN ---
DATE: 06/07/2018 SUBJECTIVE: The patient is seen today, was noted to be very pale and not responsive to verbal commands. Nurse was called. The patient was sitting in a chair, was transferred to bed. Her blood sugar was 161. The patient later improved. When put to bed, the patient's blood pressure seems to be stable. REVIEW OF SYSTEMS/PHYSICAL EXAMINATION: VITAL SIGNS: Temperature is 98.9, pulse 82, blood pressure 149/80, respirations 20, oxygen saturation 98%. GENERAL: The patient is drowsy, arousable, in her room. Skin: No diaphoresis. HEENT: No headache. No dizziness. RESPIRATORY: No dyspnea. CARDIOVASCULAR: No chest pain. GASTROINTESTINAL: No nausea, no vomiting. EXTREMITIES: She has right-sided weakness. NEUROLOGIC: Drowsy but arousable. GENITOURINARY: Denies dysuria. MENTAL STATUS EXAMINATION: An elderly female of [place] descent, drowsy but arousable. Speech is slow. Affect is restricted. Mood dysphoric. Thought process, confused. Thought content, no psychosis. No suicidal or homicidal ideation. Attention and memory seem to be improving. Insight and judgment are fair. Impulse control is fair. IMPRESSION: Major depression, post stroke, history of cerebrovascular accident involving the left middle cerebral artery. PLAN AND RECOMMENDATION: The patient is seen and meds reviewed. Continue present management. The patient was started on Lexapro for post-stroke depression. We will repeat CBC,with differential and CMP. The patient is on Plavix 75 mg daily as well as on aspirin 325 mg p.o. daily. We will monitor for signs of bleeding. The patient was noted to be very pale. Eduardo Lee MD [facility]
[2018-06-08] MEDS: ceFAZolin IV 1 gm in Dextrose 1 GM/50 ML BAG IVPB SCH ×2 (03:57→12:24)
[2018-06-08 08:28] VITALS: TEMP 98.6; O2SAT 96
--- NOTE | 2018-06-08 09:31 | CP.PCM.PN ---
Subjective - Date & Time of Evaluation Date of Evaluation: 06/08/18 Time of Evaluation: 08:15 - Subjective Subjective: Pt no complain; no CP, no SOB, no edam, no cough, no n/v Good appetite Objective - Vital Signs/Intake and Output Vital Signs (last 24 hours): Temp Pulse Resp BP Pulse Ox 98.6 F 68 20 152/74 H 96 06/08/18 07:25 06/08/18 07:25 06/08/18 07:25 06/08/18 07:25 06/08/18 07:25 Intake and Output: 06/08/18 06/08/18 06:59 18:59 Intake Total 200 Output Total 400 Balance -200 - Medications Medications: Current Medications Aspirin (Aspirin) 325 mg PO DAILY [facility] Last Admin: 06/07/18 09:45 Dose: 325 mg Carvedilol (Coreg) 12.5 mg PO BID [facility] Last Admin: 06/07/18 17:51 Dose: 12.5 mg Clopidogrel Bisulfate (Plavix) 75 mg PO DAILY [facility] Escitalopram Oxalate (Lexapro) 5 mg PO DAILY [facility] Last Admin: 06/07/18 10:28 Dose: 5 mg Cefazolin Sodium/Dextrose (Ancef Iv 1 Gm Duplex) 1 gm in 50 mls @ 100 mls/hr IVPB Q8H [facility] PRN Reason: Protocol Last Admin: 06/08/18 03:57 Dose: 100 mls/hr Insulin Detemir (Levemir) 8 unit SC DAILY [facility] Last Admin: 06/07/18 10:28 Dose: 8 units Rosuvastatin Calcium (Crestor) 20 mg PO HS [facility] Last Admin: 06/07/18 21:27 Dose: 20 mg Spironolactone (Aldactone) 25 mg PO BID [facility] Last Admin: 06/07/18 17:52 Dose: 25 mg - Labs Labs: 06/07/18 12:47 06/07/18 12:47 - Constitutional Appears: No Acute Distress - Eye Exam Eye Exam: Normal appearance - ENT Exam ENT Exam: Mucous Membranes Moist - Neck Exam Neck Exam: Full ROM. absent: Lymphadenopathy, Thyromegaly - Respiratory Exam Respiratory Exam: Decreased Breath Sounds, Clear to Ausculation Bilateral. absent: Rales, Wheezes - Cardiovascular Exam Cardiovascular Exam: REGULAR RHYTHM, +S1, +S2. absent: Gallop, JVD - GI/Abdominal Exam GI & Abdominal Exam: Soft. absent: Tenderness - Extremities Exam Extremities Exam: Full ROM. absent: Normal Capillary Refill, Pedal Edema Assessment and Plan - Assessment and Plan (Free Text) Assessment: HTN, NIDM<, Recent CVA for acute Rehab; Stop ASA Cont other meds
[2018-06-08] MEDS: Insulin Detemir 100 units/ml Vial (Levemir) SC SCH (10:02)
[2018-06-08 10:05] VITALS: BP 125/74
--- NOTE | 2018-06-08 11:33 | CP.PCM.PN ---
Objective - Vital Signs/Intake and Output Vital Signs (last 24 hours): Temp Pulse Resp BP Pulse Ox 98.6 F 68 20 125/74 96 06/08/18 07:25 06/08/18 07:25 06/08/18 07:25 06/08/18 10:02 06/08/18 07:25 Intake and Output: 06/08/18 06/08/18 06:59 18:59 Intake Total 200 Output Total 400 Balance -200 - Medications Medications: Current Medications Carvedilol (Coreg) 12.5 mg PO BID [facility] Last Admin: 06/08/18 10:02 Dose: 12.5 mg Clopidogrel Bisulfate (Plavix) 75 mg PO DAILY [facility] Last Admin: 06/08/18 10:03 Dose: 75 mg Escitalopram Oxalate (Lexapro) 5 mg PO DAILY [facility] Last Admin: 06/08/18 10:03 Dose: 5 mg Cefazolin Sodium/Dextrose (Ancef Iv 1 Gm Duplex) 1 gm in 50 mls @ 100 mls/hr IVPB Q8H [facility] PRN Reason: Protocol Last Admin: 06/08/18 03:57 Dose: 100 mls/hr Insulin Detemir (Levemir) 8 unit SC DAILY [facility] Last Admin: 06/08/18 10:02 Dose: 8 units Rosuvastatin Calcium (Crestor) 20 mg PO HS [facility] Last Admin: 06/07/18 21:27 Dose: 20 mg Spironolactone (Aldactone) 25 mg PO BID [facility] Last Admin: 06/08/18 10:01 Dose: 25 mg - Labs Labs: 06/07/18 12:47 06/07/18 12:47
--- NOTE | 2018-06-08 11:33 | IP.NPCORE ---
Stroke Core Measure - CQM - Stroke Antithrombotic Prescribed: Yes Anticoagulation Prescribed for Atrial Flutter, Atrial Fibrillation and History of:: Not Applicable Statin prescribed: Yes
[2018-06-08 13:43] VITALS: PULSE 74
--- NOTE | 2018-06-16 08:35 | CP.PCM.DIS ---
Provider - Provider Date of Admission: 06/03/18 15:26 CC: Foot pain 73 y/o female with brain tumor, HTN, NIDDM. Pt seen oc/o sent by Podiatry for left foot swelling. She was sent to ER and was admitted for Cellulitis Attending physician: Ken Rodgers MD Primary care physician: Ken Rodgers MD Time Spent in preparation of Discharge (in minutes): 15 Hospital Course - Lab Results Lab Results: Micro Results 06/01/18 13:45 Blood Blood Culture - Final NO GROWTH AFTER 5 DAYS 06/01/18 13:45 Blood Gram Stain - Final TEST NOT PERFORMED 06/01/18 13:15 Blood Blood Culture - Final NO GROWTH AFTER 5 DAYS 06/01/18 13:15 Blood Gram Stain - Final TEST NOT PERFORMED Most Recent Lab Values WBC 8.3 K/uL (4.8-10.8) D 06/07/18 12:47 RBC 3.41 Mil/uL (3.80-5.20) L 06/07/18 12:47 Hgb 11.1 g/dL (11.0-16.0) 06/07/18 12:47 Hct 32.4 % (34.0-47.0) L 06/07/18 12:47 MCV 94.9 fL (81.0-99.0) 06/07/18 12:47 MCH 32.5 pg (27.0-31.0) H 06/07/18 12:47 MCHC 34.2 g/dL (33.0-37.0) 06/07/18 12:47 RDW 14.3 % (11.5-14.5) 06/07/18 12:47 Plt Count 493 K/uL (130-400) H D 06/07/18 12:47 MPV 7.3 fL (7.2-11.7) 06/07/18 12:47 Neut % (Auto) 74.4 % (50.0-75.0) 06/07/18 12:47 Lymph % (Auto) 10.1 % (20.0-40.0) L 06/07/18 12:47 Collin % (Auto) 10.7 % (0.0-10.0) H 06/07/18 12:47 Eos % (Auto) 4.5 % (0.0-4.0) H 06/07/18 12:47 Baso % (Auto) 0.3 % (0.0-2.0) 06/07/18 12:47 Neut # (Auto) 6.2 K/uL (1.8-7.0) 06/07/18 12:47 Lymph # (Auto) 0.8 K/uL (1.0-4.3) L 06/07/18 12:47 Collin # (Auto) 0.9 K/uL (0.0-0.8) H 06/07/18 12:47 Eos # (Auto) 0.4 K/uL (0.0-0.7) 06/07/18 12:47 Baso # (Auto) 0.0 K/uL (0.0-0.2) 06/07/18 12:47 Neutrophils % (Manual) 79 % (50-75) H 06/01/18 04:47 Band Neutrophils % 2 % (0-2) 06/01/18 04:47 Lymphocytes % (Manual) 8 % (20-40) L 06/01/18 04:47 Monocytes % (Manual) 11 % (0-10) H 06/01/18 04:47 Platelet Estimate Normal (NORMAL) 06/01/18 04:47 Anisocytosis (manual) Slight 06/01/18 04:47 ESR 120 mm/hr (0-20) H 06/01/18 07:57 Sodium 140 mmol/L (132-148) 06/07/18 12:47 Potassium 4.5 mmol/L (3.6-5.2) 06/07/18 12:47 Chloride 100 mmol/L (98-107) 06/07/18 12:47 Carbon Dioxide 25 mmol/L (22-30) 06/07/18 12:47 Anion Gap 20 (10-20) 06/07/18 12:47 BUN 26 mg/dL (7-17) H 06/07/18 12:47 Creatinine 1.2 mg/dL (0.7-1.2) 06/07/18 12:47 Est GFR ( Amer) 53 06/07/18 12:47 Est GFR (Non-Af Amer) 44 06/07/18 12:47 POC Glucose (mg/dL) 157 mg/dL (65-110) H 06/08/18 11:24 Random Glucose 136 mg/dL (65-105) H 06/07/18 12:47 Hemoglobin A1c 7.2 % (4.2-6.5) H 06/03/18 07:06 Lactic Acid 1.0 mmol/L (0.7-2.1) 06/01/18 14:40 Uric Acid 7.2 mg/dL (2.2-7.5) 06/06/18 06:55 Calcium 8.4 mg/dl (8.6-10.4) L 06/07/18 12:47 Magnesium 1.7 mg/dL (1.6-2.3) 06/03/18 07:06 Total Bilirubin 0.4 mg/dL (0.2-1.3) 06/07/18 12:47 AST 60 U/L (14-36) H D 06/07/18 12:47 ALT 50 U/L (9-52) 06/07/18 12:47 Alkaline Phosphatase 95 U/L (38-126) 06/07/18 12:47 Total Protein 7.3 g/dL (6.3-8.3) 06/07/18 12:47 Albumin 3.6 g/dL (3.5-5.0) 06/07/18 12:47 Globulin 3.7 gm/dL (2.2-3.9) 06/07/18 12:47 Albumin/Globulin Ratio 1.0 (1.0-2.1) 06/07/18 12:47 Triglycerides 237 mg/dL (0-149) H D 06/04/18 06:38 Cholesterol 150 mg/dL (0-199) 06/04/18 06:38 LDL Cholesterol Direct 107 mg/dL (0-129) 06/04/18 06:38 HDL Cholesterol 12 mg/dL (30-70) L 06/04/18 06:38 Procalcitonin 0.24 NG/ML (0.19-0.49) 06/07/18 17:01 TSH 3rd Generation 3.74 mIU/L (0.46-4.68) 06/03/18 07:06 Urine Color Justina (YELLOW) 06/01/18 10:16 Urine Clarity Hazy (Clear) 06/01/18 10:16 Urine pH 5.0 (5.0-8.0) 06/01/18 10:16 Ur Specific Callaway 1.021 (1.003-1.030) 06/01/18 10:16 Urine Protein 2+ mg/dL (NEGATIVE) H 06/01/18 10:16 Urine Glucose (UA) 1+ mg/dL (Normal) 06/01/18 10:16 Urine Ketones Negative mg/dL (NEGATIVE) 06/01/18 10:16 Urine Blood 2+ (NEGATIVE) H 06/01/18 10:16 Urine Nitrate Negative (NEGATIVE) 06/01/18 10:16 Urine Bilirubin Negative (NEGATIVE) 06/01/18 10:16 Urine Urobilinogen Normal mg/dL (0.2-1.0) 06/01/18 10:16 Ur Leukocyte Esterase Neg Elin/uL (Negative) 06/01/18 10:16 Urine WBC (Auto) 2 /hpf (0-5) 06/01/18 10:16 Urine RBC (Auto) 10 /hpf (0-3) H 06/01/18 10:16 Ur Squamous Epith Cells 2 /hpf (0-5) 06/01/18 10:16 Amorphous Sediment Moderate /ul (<OCC) H 06/01/18 10:16 Urine Bacteria Rare (<OCC) 06/01/18 10:16 Hyaline Casts 3-5 /lpf (0-2) H 06/01/18 10:16 Granular Casts (Auto) 2 /lpf (0-1) 06/01/18 10:16 Vancomycin Trough 10.3 ug/mL (5.0-10.0) H 06/04/18 06:38 H.influenzae Type B Ag Negative (NEGATIVE) 06/01/18 Unknown N.meningitidis ACY/W135 Negative (NEGATIVE) 06/01/18 Unknown N.meningi B/E.coli K1 Ag Negative (NEGATIVE) 06/01/18 Unknown Group B Strep Antigen Negative (NEGATIVE) 06/01/18 Unknown S. pneumoniae Antigen Negative (NEGATIVE) 06/01/18 Unknown - Hospital Course Hospital Course: Pt admitted and place on Telemetry/ Patient place on IV antiobiotic c/o ID. Patient while in hospital has d one sided weakness. Work up showed anterior cerebral infarct and brain tumor. Patient refer to Psych for depression and Pt all through out refuse tumor to be Biopsied or excise. Pt transferred to Rehab. Discharge Exam - Head Exam Head Exam: NORMOCEPHALIC - Eye Exam Eye Exam: Normal appearance - ENT Exam ENT Exam: Mucous Membranes Moist - Respiratory Exam Respiratory Exam: Clear to PA & Lateral. absent: Chest Wall Tenderness, Rales, Rhonchi, Wheezes, Respiratory Distress - Cardiovascular Exam Cardiovascular Exam: +S1, +S2. absent: Gallop - GI/Abdominal Exam GI & Abdominal Exam: Soft. absent: Mass, Tenderness - Extremities Exam Extremities exam: full ROM, normal capillary refill, pedal pulses present Discharge Plan - Discharge Medications Prescriptions: Amoxicillin/Clavulanate [Augmentin 875 MG-125 MG] 1 tab PO Q12 #20 tab Lactobacillus Acidophilus [Bacid Acidophilus] 1 cap PO HS #10 cap - Follow Up Plan Condition: STABLE Disposition: HOME/ ROUTINE Instructions: Heart Healthy Diet, Diabetes Exchange Diet, Stroke (DC), Carbohydrate Counting Diet, Diabetes Diet , Cellulitis (Skin Infection), Adult ( DC) Additional Instructions: PLEASE ADMIT PATIENT UNDER DR. HENRY SERVICE- CALL DR. HENRY UPON PATIENT ARRIVAL TO [facility] FAC[facility] CALL DR. SALAMANCA CONSULT FOR F/U- CELLULITES CONTINUE AUGMENTIN FOR 10 MORE DAYS CONTINUE MEDICATION PER MED. REC. PT/OT PER FACILITY PROTOCOL Referrals: Ken Rodgers MD [Primary Care Provider] - Vashti Odell MD [Staff Provider] - Nii Salamanca DPM [Staff Provider] -
== END 2018-06-08 13:30 | disposition short-term general hospital (02) | DRG 602 ==
LOC: C.ER 04:14 → SUPCPDRO 04:14 → C.3T 11:55 → C.9E 13:42 → C.5S 14:39 → OBSVTOIN 06-03 15:26 → C.6T 06-03 19:57
PROVIDERS: ADMIT Internal Medicine; ATTEND Internal Medicine
DX: L03.116 Cellulitis of left lower limb (principal); I63.9 Cerebral infarction, unspecified; G81.91 Hemiplegia, unspecified affecting right dominant side; F32.9 Major depressive disorder, single episode, unspecified; E87.6 Hypokalemia; I10 Essential (primary) hypertension; R29.810 Facial weakness; Z79.84 Long term (current) use of oral hypoglycemic drugs; E11.649 Type 2 diabetes mellitus with hypoglycemia without coma; D64.9 Anemia, unspecified; G93.0 Cerebral cysts; I65.29 Occlusion and stenosis of unspecified carotid artery; D49.6 Neoplasm of unspecified behavior of brain